=== PATIENT | female | born 1950 | race Caucasian/White ===

== ENCOUNTER 2023-12-08 15:34 | Inpatient (IN) | payer MEDICARE ==
[~2023-12-08] VITALS: Ht 170.2 cm; Wt 86.3 kg
[~2023-12-08 15:34] MED LIST: AMLO-212 PO; ASPI81TA31 PO; CLON0.1T14 PO; ENOX40DI SQ; FERR325T28 PO; LOSA50TA3 PO; MULT-24 PO; PIPE3.379 IV; VANC1PIG IV
[2023-12-08 17:34] LABS: BASOPHILS % (AUTO) 0.7 % (0.0-2.0); DIFFERENTIAL COMMENT 0; LYMPHOCYTES # (AUTO) 1.3 K/uL (0.8-4.8); LYMPHOCYTES % (AUTO) 40.9 % (20.5-51.5); MEAN CORPUSCULAR HEMOGLOBIN 29.9 uug (24.7-32.8); MEAN CORPUSCULAR HGB CONC 33 g/dL (32.3-35.6); MEAN CORPUSCULAR VOLUME 91.2 fL (75.5-95.3); MONOCYTES # (AUTO) 0.2 K/uL (0.1-1.30); NEUTROPHILS # (AUTO) 1.7 K/uL (1.8-8.9); NEUTROPHILS % (AUTO) 53.4 % (38.5-71.5); RED CELL DISTRIBUTION WIDTH 26.6 % (12.3-17.7); WHITE BLOOD COUNT (AUTO) 3.3 K/uL (3.8-11.8)
[2023-12-08 17:35] LABS: CALCIUM 8.2 mg/dL (8.5-10.1); CARBON DIOXIDE 24 mmol/L (21-32); CHLORIDE 92 mmol/L (98-107); GLUCOSE 106 mg/dL (74-106); POTASSIUM 3.5 mmol/L (3.5-5.1); SODIUM SERUM 127 mmol/L (136-145); UREA NITROGEN, BLOOD 8 mg/dL (7-18)
[2023-12-08 17:39] LABS: HEMOGLOBIN 3.3 g/dL (10.9-14.3)
[2023-12-08 17:40] LABS: PLATELET COUNT (AUTO) 12 K/uL (179-408)
[2023-12-08 17:48] LABS: ALANINE AMINOTRANSFERASE 9 U/L (14-59); ALBUMIN 2.5 g/dL (3.4-5.0); ALKALINE PHOSPHATASE 69 U/L (50-136); ASPARTATE AMINOTRANSFERASE 15 U/L (15-37); BILIRUBIN,DIRECT 0.8 mg/dL (0.0-0.2); BILIRUBIN,TOTAL 1.7 mg/dL (0.2-1.0); NT-PRO BNP 13837 pg/mL (0-125); TOTAL PROTEIN, SERUM 6.5 g/dL (6.4-8.2)
[2023-12-08] MEDS ORDERED: MAGNESIUM HYDROXIDE 30 ML LIQUID UDC PO PRN (18:30)
[2023-12-08] MEDS ORDERED: ONDANSETRON 4 MG/2 ML VIAL IV PRN (18:30)
[2023-12-08 20:09] LABS: BAND % (MANUAL) 1 % (0-10); LYMPHOCYTES % (MANUAL) 42 % (20-40); MONOCYTES % (MANUAL) 4 % (2-10); NEUTROPHILS % (MANUAL) 53 % (42-75); PLATELET ESTIMATE MARKED DECREASED
[2023-12-08 20:10] LABS: ANISOCYTOSIS 2+; HYPOCHROMASIA 1+
[2023-12-08 20:11] LABS: TEAR DROP CELLS 1+
[2023-12-09] VITALS (28 sets, daily range): BP systolic 92–164; BP diastolic 44–114; TEMP 97.3–98.1; O2SAT 91–100
[2023-12-09 05:08] LABS: LYMPHOCYTES # (AUTO) 1.6 K/uL (0.8-4.8); MEAN CORPUSCULAR HEMOGLOBIN 31.3 uug (24.7-32.8); NEUTROPHILS # (AUTO) 2.1 K/uL (1.8-8.9)
[2023-12-09 05:10] LABS: BASOPHILS % (AUTO) 0.5 % (0.0-2.0); EOSINOPHILS % (AUTO) 0.3 % (0.0-7.0); LYMPHOCYTES % (AUTO) 39.9 % (20.5-51.5); MEAN CORPUSCULAR HGB CONC 34 g/dL (32.3-35.6); MEAN CORPUSCULAR VOLUME 91.8 fL (75.5-95.3); MONOCYTES # (AUTO) 0.2 K/uL (0.1-1.30); NEUTROPHILS % (AUTO) 53.3 % (38.5-71.5); RED CELL DISTRIBUTION WIDTH 21.7 % (12.3-17.7)
[2023-12-09 05:41] LABS: CALCIUM 7.9 mg/dL (8.5-10.1); CARBON DIOXIDE 26 mmol/L (21-32); CHLORIDE 96 mmol/L (98-107); CREATININE 0.9 mg/dL (0.6-1.3); GLUCOSE 98 mg/dL (74-106); MAGNESIUM 1.4 mg/dL (1.8-2.4); PHOSPHOROUS 2.9 mg/dL (2.5-4.9); POTASSIUM 3.2 mmol/L (3.5-5.1); SODIUM SERUM 129 mmol/L (136-145); UREA NITROGEN, BLOOD 9 mg/dL (7-18)
[2023-12-09 05:53] LABS: RED BLOOD CELL COUNT(AUTO) 1.34 MIL/uL (3.63-4.92)
[2023-12-09 05:55] LABS: HEMOGLOBIN 4.2 g/dL (10.9-14.3)
[2023-12-09 05:58] LABS: HEMATOCRIT 12.3 % (31.2-41.9); PLATELET COUNT (AUTO) 31 K/uL (179-408)
[2023-12-09] MEDS ORDERED: POTASSIUM CHLORIDE 20 MEQ POWDER PACKET GT ONE (08:00)
[2023-12-09] MEDS: FUROSEMIDE 20 MG/2 ML VIAL IV ONE (08:50)
[2023-12-09] MEDS: MAGNESIUM SULFATE/D5W 100 ML IV SCH (08:51)
[2023-12-09] MEDS: POTASSIUM CHLORIDE 20 MEQ TAB.PRT.SR PO ONE (08:51)
[2023-12-09] MEDS: PANTOPRAZOLE SODIUM 40 MG VIAL IV SCH (08:52)
[2023-12-09 11:11] LABS: *BILIRUBIN,URIN NEGATIVE (NEGATIVE); *BLOOD, URINE 2+ (NEGATIVE); *CLARITY,URINE CLEAR (CLEAR); *COLOR,URINE YELLOW (YELLOW); *KETONES,URINE NEGATIVE (NEGATIVE); *PROTEIN,URINE NEGATIVE (NEGATIVE); *UROBILINOGEN,URINE 0.2 E.U./dl (NORMAL); LEUKOCYTE ESTERASE ,URINE TRACE (NEGATIVE); NITRITE, URINE NEGATIVE (NEGATIVE); PH,URINE 6.5 (5.0-8.0); UGLUCOSE NEGATIVE (NEGATIVE)
[2023-12-09 11:41] LABS: BACTERIA,URINE MODERATE /HPF (NONE SEEN); SQUAMOUS EPITHELIAL CELL,UR MANY /HPF (NONE SEEN)
[2023-12-09 12:25] LABS: HEMATOCRIT 14.2 % (31.2-41.9); HEMOGLOBIN 4.8 g/dL (10.9-14.3)
[2023-12-09] MEDS ORDERED: IBUP-1490 PO (14:18)
[2023-12-09] MEDS ORDERED: PANT40TA49 PO (14:18)
[2023-12-09] MEDS: HYDROCODONE/APAP 5-325MG TABLET PO PRN (15:42)
[2023-12-09] MEDS: PHYTONADIONE 10 MG/1 ML AMPUL IV ONE (16:57)
[2023-12-09 18:14] LABS: IRON, SERUM 240 ug/dL (50-175)
[2023-12-09 18:17] LABS: *RHEUMATOID FACTOR SCREEN NEGATIVE (NEGATIVE)
[2023-12-09 18:24] LABS: HIV-1 p24 ANTIGEN NON REACTIVE (NONREACTIVE); HIV-1/2 ANTIBODY NON REACTIVE (NONREACTIVE)
[2023-12-09 18:37] LABS: C-REACTIVE PROTEIN 3.04 mg/dL (0.00-0.30)
[2023-12-09 18:55] LABS: THYROID STIMULATING HORMONE 3.217 mIU/mL (0.358-3.740)
[2023-12-09] MEDS: diphenhydrAMINE 50 MG/1 ML VIAL IV ONE ×2 (20:00→20:28)
[2023-12-09] MEDS: ACETAMINOPHEN 325 MG TABLET PO ONE (20:28)
[2023-12-10] VITALS (31 sets, daily range): BP systolic 92–156; BP diastolic 42–93; TEMP 97.3–98.8; O2SAT 91–99
[2023-12-10] MEDS: diphenhydrAMINE 50 MG/1 ML VIAL IV PRN (02:40)
[2023-12-10 05:17] LABS: MEAN CORPUSCULAR HEMOGLOBIN 30.4 uug (24.7-32.8); WHITE BLOOD COUNT (AUTO) 2.9 K/uL (3.8-11.8)
[2023-12-10 05:18] LABS: BASOPHILS % (AUTO) 0.7 % (0.0-2.0); EOSINOPHILS % (AUTO) 1.1 % (0.0-7.0); LYMPHOCYTES # (AUTO) 1.7 K/uL (0.8-4.8); LYMPHOCYTES % (AUTO) 59.6 % (20.5-51.5); MEAN CORPUSCULAR HGB CONC 34 g/dL (32.3-35.6); MEAN CORPUSCULAR VOLUME 88.6 fL (75.5-95.3); MONOCYTES # (AUTO) 0.1 K/uL (0.1-1.30); MONOCYTES % (AUTO) 4.9 % (0.0-11.0); NEUTROPHILS % (AUTO) 33.7 % (38.5-71.5); RED CELL DISTRIBUTION WIDTH 19.6 % (12.3-17.7)
[2023-12-10 05:34] LABS: CALCIUM 8.2 mg/dL (8.5-10.1); CARBON DIOXIDE 29 mmol/L (21-32); CHLORIDE 98 mmol/L (98-107); GLUCOSE 94 mg/dL (74-106); MAGNESIUM 2.3 mg/dL (1.8-2.4); POTASSIUM 3.4 mmol/L (3.5-5.1); SODIUM SERUM 134 mmol/L (136-145); UREA NITROGEN, BLOOD 12 mg/dL (7-18)
[2023-12-10 05:42] LABS: RED BLOOD CELL COUNT(AUTO) 2.07 MIL/uL (3.63-4.92)
[2023-12-10 05:44] LABS: HEMATOCRIT 18.3 % (31.2-41.9); HEMOGLOBIN 6.3 g/dL (10.9-14.3)
[2023-12-10 05:45] LABS: DIFFERENTIAL COMMENT 1; PLATELET COUNT (AUTO) 21 K/uL (179-408)
[2023-12-10 06:43] LABS: EOSINOPHILS % (MANUAL) 2 % (0-8); LYMPHOCYTES % (MANUAL) 22 % (20-40); MONOCYTES % (MANUAL) 6 % (2-10); NEUTROPHILS % (MANUAL) 69 % (42-75)
[2023-12-10] MEDS: POTASSIUM CHLORIDE 20 MEQ TAB.PRT.SR PO ONE (10:31)
[2023-12-10] MEDS: FUROSEMIDE 20 MG/2 ML VIAL IV SCH (12:30)
[2023-12-10] MEDS: ACETAMINOPHEN 325 MG TABLET PO PRN (14:39)
[2023-12-10] MEDS: NEUTRA PHOS PACKET PO ONE ×2 (16:00→17:42)
[2023-12-10 16:12] LABS: HEMATOCRIT 23.7 % (31.2-41.9); HEMOGLOBIN 8.2 g/dL (10.9-14.3)
[2023-12-10] MEDS: HYDROCODONE/APAP 10-325 MG TABLET PO PRN (20:41)
[2023-12-10] MEDS: ZOLPIDEM 5 MG TABLET PO PRN (20:42)
[2023-12-11] VITALS (27 sets, daily range): BP systolic 67–156; BP diastolic 35–107; TEMP 97–98.6; O2SAT 91–99
[2023-12-11 05:11] LABS: CALCIUM 8.3 mg/dL (8.5-10.1); CARBON DIOXIDE 34 mmol/L (21-32); CHLORIDE 100 mmol/L (98-107); CREATININE 0.9 mg/dL (0.6-1.3); GLUCOSE 88 mg/dL (74-106); POTASSIUM 4.5 mmol/L (3.5-5.1); SODIUM SERUM 137 mmol/L (136-145); UREA NITROGEN, BLOOD 29 mg/dL (7-18)
[2023-12-11 08:10] LABS: *IMMUNOGLOBULIN G, SERUM 1577 mg/dL (586-1602); IMMUNOGLOBULIN A, SERUM 385 mg/dL (64-422); IMMUNOGLOBULIN M, SERUM 39 mg/dL (26-217)
[2023-12-11 09:16] LABS: BASOPHILS % (AUTO) 1.3 % (0.0-2.0); DIFFERENTIAL COMMENT 0; EOSINOPHILS # (AUTO) 0.1 K/uL (0.0-0.7); EOSINOPHILS % (AUTO) 2.8 % (0.0-7.0); HEMATOCRIT 23.6 % (31.2-41.9); HEMOGLOBIN 8.2 g/dL (10.9-14.3); LYMPHOCYTES # (AUTO) 1.8 K/uL (0.8-4.8); LYMPHOCYTES % (AUTO) 50.5 % (20.5-51.5); MEAN CORPUSCULAR HGB CONC 35 g/dL (32.3-35.6); MEAN CORPUSCULAR VOLUME 88.8 fL (75.5-95.3); MONOCYTES # (AUTO) 0.3 K/uL (0.1-1.30); MONOCYTES % (AUTO) 7.5 % (0.0-11.0); NEUTROPHILS # (AUTO) 1.3 K/uL (1.8-8.9); NEUTROPHILS % (AUTO) 37.9 % (38.5-71.5); RED BLOOD CELL COUNT(AUTO) 2.65 MIL/uL (3.63-4.92); RED CELL DISTRIBUTION WIDTH 18.9 % (12.3-17.7); WHITE BLOOD COUNT (AUTO) 3.5 K/uL (3.8-11.8)
[2023-12-11 09:30] LABS: PLATELET COUNT (AUTO) 16 K/uL (179-408)
[2023-12-11 11:08] LABS: ANISOCYTOSIS 2+; EOSINOPHILS % (MANUAL) 4 % (0-8); LYMPHOCYTES % (MANUAL) 56 % (20-40); MONOCYTES % (MANUAL) 8 % (2-10); NEUTROPHILS % (MANUAL) 32 % (42-75); PLATELET ESTIMATE MARKED DECREASED
[2023-12-11] MEDS: diphenhydrAMINE 50 MG/1 ML VIAL IV PRN (15:27)
[2023-12-12] VITALS (25 sets, daily range): BP systolic 90–171; BP diastolic 40–108; TEMP 97–98.9; O2SAT 89–98
[2023-12-12 01:06] LABS: FOLATE (FOLIC ACID), SERUM 6.5 ng/mL (>3.0)
[2023-12-12 05:47] LABS: EOSINOPHILS # (AUTO) 0.1 K/uL (0.0-0.7); EOSINOPHILS % (AUTO) 4.5 % (0.0-7.0); NEUTROPHILS # (AUTO) 1.3 K/uL (1.8-8.9); RED CELL DISTRIBUTION WIDTH 18.4 % (12.3-17.7); WHITE BLOOD COUNT (AUTO) 2.9 K/uL (3.8-11.8)
[2023-12-12 05:49] LABS: BASOPHILS % (AUTO) 0.9 % (0.0-2.0); HEMATOCRIT 22.7 % (31.2-41.9); HEMOGLOBIN 7.7 g/dL (10.9-14.3); LYMPHOCYTES # (AUTO) 1.2 K/uL (0.8-4.8); MEAN CORPUSCULAR HEMOGLOBIN 30.3 uug (24.7-32.8); MEAN CORPUSCULAR HGB CONC 34 g/dL (32.3-35.6); MONOCYTES # (AUTO) 0.2 K/uL (0.1-1.30); MONOCYTES % (AUTO) 5.8 % (0.0-11.0); NEUTROPHILS % (AUTO) 45.8 % (38.5-71.5); RED BLOOD CELL COUNT(AUTO) 2.55 MIL/uL (3.63-4.92)
[2023-12-12 05:57] LABS: CALCIUM 8.7 mg/dL (8.5-10.1); CARBON DIOXIDE 36 mmol/L (21-32); CHLORIDE 100 mmol/L (98-107); CREATININE 0.9 mg/dL (0.6-1.3); GLUCOSE 87 mg/dL (74-106); MAGNESIUM 1.5 mg/dL (1.8-2.4); PHOSPHOROUS 3.3 mg/dL (2.5-4.9); POTASSIUM 3.9 mmol/L (3.5-5.1); SODIUM SERUM 137 mmol/L (136-145); UREA NITROGEN, BLOOD 35 mg/dL (7-18)
[2023-12-12 05:58] LABS: DIFFERENTIAL COMMENT 1
[2023-12-12 05:59] LABS: PLATELET COUNT (AUTO) 24 K/uL (179-408)
[2023-12-12 07:38] LABS: ANISOCYTOSIS 2+; EOSINOPHILS % (MANUAL) 5 % (0-8); LYMPHOCYTES % (MANUAL) 43 % (20-40); MONOCYTES % (MANUAL) 6 % (2-10); NEUTROPHILS % (MANUAL) 46 % (42-75); PLATELET ESTIMATE MARKED DECREASED
[2023-12-12 07:45] LABS: *OCCULT BLOOD STOOL NEGATIVE (NEGATIVE)
[2023-12-12] MEDS: MAGNESIUM OXIDE 400 MG TABLET PO ONE (10:18)
[2023-12-12 10:35] LABS: AMMONIA < 10 umol/L (11-32)
[2023-12-12 10:39] LABS: ALANINE AMINOTRANSFERASE 11 U/L (14-59); ALBUMIN 2.4 g/dL (3.4-5.0); ALKALINE PHOSPHATASE 74 U/L (50-136); ASPARTATE AMINOTRANSFERASE 17 U/L (15-37); BILIRUBIN,DIRECT 0.5 mg/dL (0.0-0.2); BILIRUBIN,TOTAL 1.3 mg/dL (0.2-1.0); TOTAL PROTEIN, SERUM 6.3 g/dL (6.4-8.2)
[2023-12-12] MEDS ORDERED: ALBUTEROL SULFATE 2.5 MG/3 ML NEBU NEB PRN (17:00)
[2023-12-12] MEDS ORDERED: PIPERACILLIN SODIUM/TAZOBACTAM 3.375 G in IV DEXTROSE 5% 50 ML IV SCH (17:00)
[2023-12-12] MEDS ORDERED: PIPERACILLIN SODIUM/TAZOBACTAM 3.375 G in IV DEXTROSE 5% 100 ML IV ONE (17:00)
[2023-12-12] MEDS: MORPHINE SULFATE 2 MG/1 ML DISP.SYRIN IV PRN (20:14)
[2023-12-12] MEDS ORDERED: PIPERACILLIN SODIUM/TAZOBACTAM 3.375 G in IV DEXTROSE 5% 100 ML IV SCH (22:00)
[2023-12-13] VITALS (28 sets, daily range): BP systolic 73–162; BP diastolic 48–92; TEMP 97.5–99; O2SAT 93–98
[2023-12-13 03:10] LABS: HEPATITIS B SURFACE AB, QUAL Non Reactive (.); HEPATITIS B SURFACE AG Negative (Negative); HEPATITIS C VIRUS ANTIBODY Non Reactive (Non Reactive)
[2023-12-13 06:29] LABS: BASOPHILS % (AUTO) 1.1 % (0.0-2.0); CALCIUM 8.6 mg/dL (8.5-10.1); CARBON DIOXIDE 30 mmol/L (21-32); CHLORIDE 101 mmol/L (98-107); CREATININE 0.7 mg/dL (0.6-1.3); EOSINOPHILS % (AUTO) 2.1 % (0.0-7.0); GLUCOSE 90 mg/dL (74-106); LYMPHOCYTES # (AUTO) 1.3 K/uL (0.8-4.8); LYMPHOCYTES % (AUTO) 57.4 % (20.5-51.5); MAGNESIUM 1.5 mg/dL (1.8-2.4); MEAN CORPUSCULAR HEMOGLOBIN 30.4 uug (24.7-32.8); MEAN CORPUSCULAR HGB CONC 34 g/dL (32.3-35.6); MEAN CORPUSCULAR VOLUME 88.9 fL (75.5-95.3); MONOCYTES # (AUTO) 0.1 K/uL (0.1-1.30); MONOCYTES % (AUTO) 4.6 % (0.0-11.0); NEUTROPHILS # (AUTO) 0.8 K/uL (1.8-8.9); NEUTROPHILS % (AUTO) 34.8 % (38.5-71.5); PHOSPHOROUS 2.7 mg/dL (2.5-4.9); POTASSIUM 3.7 mmol/L (3.5-5.1); RED CELL DISTRIBUTION WIDTH 17.8 % (12.3-17.7); SODIUM SERUM 135 mmol/L (136-145); UREA NITROGEN, BLOOD 24 mg/dL (7-18); WHITE BLOOD COUNT (AUTO) 2.3 K/uL (3.8-11.8)
[2023-12-13 06:37] LABS: HEMATOCRIT 20.7 % (31.2-41.9); HEMOGLOBIN 7.1 g/dL (10.9-14.3); RED BLOOD CELL COUNT(AUTO) 2.33 MIL/uL (3.63-4.92)
[2023-12-13 06:38] LABS: PLATELET COUNT (AUTO) 16 K/uL (179-408)
[2023-12-13 09:09] LABS: FREE KAPPA LT CHAINS SERUM 47.7 mg/L (3.3-19.4); FREE LAMBDA LT CHAIN SERUM 27.2 mg/L (5.7-26.3); KAPPA/LAMBDA RATIO SERUM 1.75 (0.26-1.65)
[2023-12-13] MEDS: MAGNESIUM SULFATE/D5W 100 ML IV SCH (10:10)
[2023-12-13 12:07] LABS: A/G RATIO 0.7 (0.7-1.7); ALBUMIN 2.7 g/dL (2.9-4.4); ALPHA-1-GLOBULIN 0.4 g/dL (0.0-0.4); ALPHA-2-GLOBULIN 0.5 g/dL (0.4-1.0); BETA GLOBULIN 1.2 g/dL (0.7-1.3); GAMMA GLOBULIN 1.9 g/dL (0.4-1.8); GLOBULIN, TOTAL 3.9 g/dL (2.2-3.9); M-SPIKE Not Observed g/dL (Not Observed); PROTEIN, TOTAL 6.6 g/dL (6.0-8.5)
[2023-12-13 13:10] LABS: *ANTI-SCLERODERMA-70 AB <0.2 AI (0.0-0.9); *RNP ANTIBODIES 0.2 AI (0.0-0.9); *SJOGREN'S ANTI-SS-A 0.3 AI (0.0-0.9); *SJOGREN'S ANTI-SS-B <0.2 AI (0.0-0.9); *SMITH ANTIBODIES <0.2 AI (0.0-0.9); ANTI-DNA(DS) AB, QN 1 IU/mL (0-9); ANTI-NUCLEAR AB DIRECT Negative (Negative)
[2023-12-13 16:14] LABS: BAND % (MANUAL) 4 % (0-10); EOSINOPHILS % (MANUAL) 3 % (0-8); LYMPHOCYTES % (MANUAL) 55 % (20-40); MONOCYTES % (MANUAL) 5 % (2-10); NEUTROPHILS % (MANUAL) 33 % (42-75)
[2023-12-13 16:15] LABS: ANISOCYTOSIS 1+; PLATELET ESTIMATE MARKED DECREASED
[2023-12-13] MEDS: MORPHINE SULFATE 2 MG/1 ML DISP.SYRIN IV PRN (16:21)
[2023-12-14] VITALS (30 sets, daily range): BP systolic 94–158; BP diastolic 46–132; TEMP 97.8–99.1; O2SAT 93–98
[2023-12-14 05:11] LABS: CALCIUM 8.4 mg/dL (8.5-10.1); CARBON DIOXIDE 29 mmol/L (21-32); CHLORIDE 98 mmol/L (98-107); CREATININE 0.8 mg/dL (0.6-1.3); GLUCOSE 98 mg/dL (74-106); SODIUM SERUM 132 mmol/L (136-145); UREA NITROGEN, BLOOD 26 mg/dL (7-18)
[2023-12-14 05:43] LABS: HEMATOCRIT 20.5 % (31.2-41.9); HEMOGLOBIN 6.9 g/dL (10.9-14.3)
[2023-12-14] MEDS: PANTOPRAZOLE SODIUM 40 MG TABLET.DR PO SCH (06:22)
[2023-12-14] MEDS ORDERED: IOHEXOL 300MG/ML 100 ML INFUS..BTL ONE (11:32)
[2023-12-14] MEDS ORDERED: IV NORMAL SALINE 250 ML IV ONE (11:32)
[2023-12-14] MEDS ORDERED: SWABABLE VALVE TRANSFER SET EA MC ONE (11:32)
[2023-12-14] MEDS: GABAPENTIN 100 MG CAPSULE PO SCH (19:26)
[2023-12-14] MEDS: diphenhydrAMINE 50 MG/1 ML VIAL IV ONE (22:26)
[2023-12-14] MEDS: ACETAMINOPHEN 325 MG TABLET PO ONE (22:26)
[2023-12-15] VITALS (40 sets, daily range): BP systolic 89–173; BP diastolic 47–144; TEMP 97.5–98.6; O2SAT 94–99
[2023-12-15 05:03] LABS: BASOPHILS % (AUTO) 0.8 % (0.0-2.0); EOSINOPHILS # (AUTO) 0.1 K/uL (0.0-0.7); EOSINOPHILS % (AUTO) 3.2 % (0.0-7.0); HEMATOCRIT 24.2 % (31.2-41.9); HEMOGLOBIN 8.5 g/dL (10.9-14.3); LYMPHOCYTES # (AUTO) 1.2 K/uL (0.8-4.8); LYMPHOCYTES % (AUTO) 58.6 % (20.5-51.5); MEAN CORPUSCULAR HEMOGLOBIN 30.6 uug (24.7-32.8); MEAN CORPUSCULAR HGB CONC 35 g/dL (32.3-35.6); MEAN CORPUSCULAR VOLUME 86.8 fL (75.5-95.3); MONOCYTES # (AUTO) 0.2 K/uL (0.1-1.30); NEUTROPHILS # (AUTO) 0.5 K/uL (1.8-8.9); NEUTROPHILS % (AUTO) 26.4 % (38.5-71.5); RED BLOOD CELL COUNT(AUTO) 2.79 MIL/uL (3.63-4.92); RED CELL DISTRIBUTION WIDTH 17.1 % (12.3-17.7)
[2023-12-15 05:15] LABS: ALANINE AMINOTRANSFERASE 13 U/L (14-59); ALBUMIN 2.2 g/dL (3.4-5.0); ALKALINE PHOSPHATASE 67 U/L (50-136); ASPARTATE AMINOTRANSFERASE 11 U/L (15-37); CALCIUM 8.4 mg/dL (8.5-10.1); CARBON DIOXIDE 28 mmol/L (21-32); CHLORIDE 103 mmol/L (98-107); CREATININE 0.8 mg/dL (0.6-1.3); GLUCOSE 93 mg/dL (74-106); MAGNESIUM 1.9 mg/dL (1.8-2.4); PHOSPHOROUS 3.5 mg/dL (2.5-4.9); POTASSIUM 3.9 mmol/L (3.5-5.1); SODIUM SERUM 136 mmol/L (136-145); TOTAL PROTEIN, SERUM 5.8 g/dL (6.4-8.2); UREA NITROGEN, BLOOD 23 mg/dL (7-18)
[2023-12-15 05:19] LABS: PLATELET COUNT (AUTO) 22 K/uL (179-408)
[2023-12-15 05:54] LABS: LYMPHOCYTES % (MANUAL) 69 % (20-40); MONOCYTES % (MANUAL) 8 % (2-10); NEUTROPHILS % (MANUAL) 23 % (42-75)
[2023-12-15] MEDS ORDERED: MEROPENEM 1 G in IV NORMAL SALINE 50 ML IV ONE (07:00)
[2023-12-15] MEDS: MEROPENEM 1 G in IV NORMAL SALINE 100 ML IV SCH (09:01)
[2023-12-15] MEDS: ACETAMINOPHEN 325 MG TABLET PO ONE (22:52)
[2023-12-15] MEDS: diphenhydrAMINE 50 MG/1 ML VIAL IV ONE (22:53)
[2023-12-16] VITALS (58 sets, daily range): BP systolic 114–172; BP diastolic 47–118; TEMP 97.2–98.7; O2SAT 94–99
[2023-12-16 05:51] LABS: HEMOGLOBIN 7.9 g/dL (10.9-14.3); MEAN CORPUSCULAR HGB CONC 36 g/dL (32.3-35.6); RED CELL DISTRIBUTION WIDTH 17.1 % (12.3-17.7); WHITE BLOOD COUNT (AUTO) 2.1 K/uL (3.8-11.8)
[2023-12-16 05:58] LABS: CALCIUM 8.6 mg/dL (8.5-10.1); CARBON DIOXIDE 27 mmol/L (21-32); CHLORIDE 104 mmol/L (98-107); CREATININE 0.8 mg/dL (0.6-1.3); GLUCOSE 113 mg/dL (74-106); POTASSIUM 3.5 mmol/L (3.5-5.1); SODIUM SERUM 139 mmol/L (136-145); UREA NITROGEN, BLOOD 14 mg/dL (7-18)
[2023-12-16 06:04] LABS: BASOPHILS % (AUTO) 0.5 % (0.0-2.0); EOSINOPHILS % (AUTO) 2.2 % (0.0-7.0); LYMPHOCYTES # (AUTO) 1.1 K/uL (0.8-4.8); LYMPHOCYTES % (AUTO) 53.5 % (20.5-51.5); MEAN CORPUSCULAR HEMOGLOBIN 30.7 uug (24.7-32.8); MONOCYTES # (AUTO) 0.2 K/uL (0.1-1.30); MONOCYTES % (AUTO) 9.2 % (0.0-11.0); NEUTROPHILS # (AUTO) 0.7 K/uL (1.8-8.9); NEUTROPHILS % (AUTO) 34.6 % (38.5-71.5); RED BLOOD CELL COUNT(AUTO) 2.56 MIL/uL (3.63-4.92)
[2023-12-16 06:16] LABS: DIFFERENTIAL COMMENT 0; PLATELET COUNT (AUTO) 28 K/uL (179-408)
[2023-12-16 06:54] LABS: LYMPHOCYTES % (MANUAL) 56 % (20-40); MONOCYTES % (MANUAL) 5 % (2-10); NEUTROPHILS % (MANUAL) 39 % (42-75)
[2023-12-16] MEDS ORDERED: LIDOCAINE HCL 1% 20 ML VIAL IJ PRN (09:00)
[2023-12-17] VITALS (16 sets, daily range): BP systolic 121–173; BP diastolic 38–85; TEMP 97–98.6; O2SAT 95–99
[2023-12-17 06:28] LABS: BASOPHILS % (AUTO) 0.5 % (0.0-2.0); EOSINOPHILS # (AUTO) 0.1 K/uL (0.0-0.7); EOSINOPHILS % (AUTO) 2.9 % (0.0-7.0); HEMATOCRIT 21.8 % (31.2-41.9); HEMOGLOBIN 7.8 g/dL (10.9-14.3); LYMPHOCYTES # (AUTO) 1.4 K/uL (0.8-4.8); LYMPHOCYTES % (AUTO) 60.9 % (20.5-51.5); MEAN CORPUSCULAR HEMOGLOBIN 31.2 uug (24.7-32.8); MEAN CORPUSCULAR HGB CONC 36 g/dL (32.3-35.6); MEAN CORPUSCULAR VOLUME 87.4 fL (75.5-95.3); MONOCYTES # (AUTO) 0.2 K/uL (0.1-1.30); MONOCYTES % (AUTO) 7.8 % (0.0-11.0); NEUTROPHILS # (AUTO) 0.6 K/uL (1.8-8.9); NEUTROPHILS % (AUTO) 27.9 % (38.5-71.5); RED CELL DISTRIBUTION WIDTH 16.7 % (12.3-17.7); WHITE BLOOD COUNT (AUTO) 2.3 K/uL (3.8-11.8)
[2023-12-17 06:44] LABS: ALANINE AMINOTRANSFERASE 14 U/L (14-59); ALBUMIN 2.4 g/dL (3.4-5.0); ALKALINE PHOSPHATASE 73 U/L (50-136); ASPARTATE AMINOTRANSFERASE 12 U/L (15-37); BILIRUBIN,TOTAL 0.8 mg/dL (0.2-1.0); CALCIUM 8.7 mg/dL (8.5-10.1); CARBON DIOXIDE 26 mmol/L (21-32); CHLORIDE 105 mmol/L (98-107); CREATININE 0.7 mg/dL (0.6-1.3); GLUCOSE 87 mg/dL (74-106); MAGNESIUM 1.8 mg/dL (1.8-2.4); PHOSPHOROUS 3.5 mg/dL (2.5-4.9); POTASSIUM 3.9 mmol/L (3.5-5.1); SODIUM SERUM 139 mmol/L (136-145); TOTAL PROTEIN, SERUM 6.2 g/dL (6.4-8.2); UREA NITROGEN, BLOOD 11 mg/dL (7-18)
[2023-12-17 07:29] LABS: DIFFERENTIAL COMMENT 1; PLATELET COUNT (AUTO) 38 K/uL (179-408); RED BLOOD CELL COUNT(AUTO) 2.49 MIL/uL (3.63-4.92)
[2023-12-17] MEDS: ACETAMINOPHEN 325 MG TABLET PO ONE (07:57)
[2023-12-17] MEDS: diphenhydrAMINE 50 MG/1 ML VIAL IV ONE (07:57)
[2023-12-17] MEDS: METOPROLOL TARTRATE 25 MG TABLET PO SCH (13:43)
[2023-12-18] VITALS (9 sets, daily range): BP systolic 133–141; BP diastolic 56–66; TEMP 97.7–98.8; O2SAT 96–99
[2023-12-18] MEDS: REMEDY ESSENTIAL ZINC PASTE 113 GM TP PRN (05:26)
[2023-12-18 06:05] LABS: BASOPHILS % (AUTO) 0.6 % (0.0-2.0); EOSINOPHILS # (AUTO) 0.1 K/uL (0.0-0.7); EOSINOPHILS % (AUTO) 2.1 % (0.0-7.0); HEMATOCRIT 22.1 % (31.2-41.9); HEMOGLOBIN 7.8 g/dL (10.9-14.3); LYMPHOCYTES # (AUTO) 1.4 K/uL (0.8-4.8); LYMPHOCYTES % (AUTO) 56.7 % (20.5-51.5); MEAN CORPUSCULAR HEMOGLOBIN 30.8 uug (24.7-32.8); MEAN CORPUSCULAR HGB CONC 35 g/dL (32.3-35.6); MEAN CORPUSCULAR VOLUME 87.8 fL (75.5-95.3); MONOCYTES # (AUTO) 0.2 K/uL (0.1-1.30); MONOCYTES % (AUTO) 8.7 % (0.0-11.0); NEUTROPHILS # (AUTO) 0.8 K/uL (1.8-8.9); NEUTROPHILS % (AUTO) 31.9 % (38.5-71.5); RED BLOOD CELL COUNT(AUTO) 2.52 MIL/uL (3.63-4.92); RED CELL DISTRIBUTION WIDTH 17.2 % (12.3-17.7); WHITE BLOOD COUNT (AUTO) 2.5 K/uL (3.8-11.8)
[2023-12-18 06:14] LABS: DIFFERENTIAL COMMENT 1; PLATELET COUNT (AUTO) 38 K/uL (179-408)
[2023-12-18 07:27] LABS: CALCIUM 8.7 mg/dL (8.5-10.1); CARBON DIOXIDE 26 mmol/L (21-32); CHLORIDE 106 mmol/L (98-107); CREATININE 0.9 mg/dL (0.6-1.3); GLUCOSE 85 mg/dL (74-106); POTASSIUM 3.9 mmol/L (3.5-5.1); SODIUM SERUM 138 mmol/L (136-145); UREA NITROGEN, BLOOD 12 mg/dL (7-18)
[2023-12-18 07:46] LABS: NEUTROPHILS % (MANUAL) 30 % (42-75)
[2023-12-18 07:47] LABS: ANISOCYTOSIS 1+; BAND % (MANUAL) 4 % (0-10); EOSINOPHILS % (MANUAL) 3 % (0-8); LYMPHOCYTES % (MANUAL) 55 % (20-40); MONOCYTES % (MANUAL) 8 % (2-10); PLATELET ESTIMATE MARKED DECREASED
[2023-12-18] MEDS: diphenhydrAMINE 50 MG/1 ML VIAL IV ONE (11:52)
[2023-12-18] MEDS: ACETAMINOPHEN 325 MG TABLET PO ONE (11:53)
[2023-12-18] MEDS ORDERED: HYDROCODONE/APAP 10-325 MG TABLET PO PRN (13:00)
[2023-12-18] MEDS: ACIDOPHILUS/BULGARICUS CHEW TAB PO SCH (13:35)
[2023-12-18] MEDS ORDERED: MORPHINE SULFATE 2 MG/1 ML DISP.SYRIN IV ONE (14:45)
[2023-12-18] MEDS ORDERED: LORAZEPAM 1 MG TABLET PO ONE (14:45)
[2023-12-18] MEDS: LORAZEPAM 1 MG TABLET PO PRN (14:47)
[2023-12-18] MEDS: MORPHINE SULFATE 2 MG/1 ML DISP.SYRIN IV STA (15:02)
[2023-12-18] MEDS: LIDOCAINE HCL 1% 20 ML VIAL IJ PRN (16:17)
[2023-12-18 16:35] LABS: BASOPHILS % (AUTO) 0.4 % (0.0-2.0); HEMATOCRIT 23.4 % (31.2-41.9); LYMPHOCYTES # (AUTO) 1.4 K/uL (0.8-4.8); LYMPHOCYTES % (AUTO) 54.8 % (20.5-51.5); MEAN CORPUSCULAR HEMOGLOBIN 30.4 uug (24.7-32.8); MEAN CORPUSCULAR HGB CONC 34 g/dL (32.3-35.6); MEAN CORPUSCULAR VOLUME 88.5 fL (75.5-95.3); MONOCYTES # (AUTO) 0.2 K/uL (0.1-1.30); MONOCYTES % (AUTO) 7.1 % (0.0-11.0); NEUTROPHILS # (AUTO) 0.9 K/uL (1.8-8.9); NEUTROPHILS % (AUTO) 35.7 % (38.5-71.5); RED BLOOD CELL COUNT(AUTO) 2.64 MIL/uL (3.63-4.92); RED CELL DISTRIBUTION WIDTH 16.5 % (12.3-17.7); WHITE BLOOD COUNT (AUTO) 2.5 K/uL (3.8-11.8)
[2023-12-18 16:37] LABS: DIFFERENTIAL COMMENT 1
[2023-12-18 16:40] LABS: PLATELET COUNT (AUTO) 48 K/uL (179-408)
[2023-12-18] MEDS ORDERED: MORPHINE SULFATE 2 MG/1 ML DISP.SYRIN IV PRN (17:00)
[2023-12-18 20:01] LABS: EOSINOPHILS % (MANUAL) 1 % (0-8); LYMPHOCYTES % (MANUAL) 64 % (20-40); MONOCYTES % (MANUAL) 6 % (2-10); NEUTROPHILS % (MANUAL) 29 % (42-75); PLATELET ESTIMATE DECREASED
[2023-12-19] MEDS ORDERED: MEROPENEM 1 G VIAL IV ONE (00:08)
[2023-12-19 06:47] LABS: BASOPHILS % (AUTO) 0.3 % (0.0-2.0); EOSINOPHILS % (AUTO) 2.1 % (0.0-7.0); HEMATOCRIT 21.5 % (31.2-41.9); HEMOGLOBIN 7.5 g/dL (10.9-14.3); LYMPHOCYTES # (AUTO) 1.2 K/uL (0.8-4.8); LYMPHOCYTES % (AUTO) 63.8 % (20.5-51.5); MEAN CORPUSCULAR HEMOGLOBIN 30.8 uug (24.7-32.8); MEAN CORPUSCULAR HGB CONC 35 g/dL (32.3-35.6); MEAN CORPUSCULAR VOLUME 88.8 fL (75.5-95.3); MONOCYTES # (AUTO) 0.1 K/uL (0.1-1.30); NEUTROPHILS # (AUTO) 0.5 K/uL (1.8-8.9); NEUTROPHILS % (AUTO) 26.8 % (38.5-71.5); RED CELL DISTRIBUTION WIDTH 16.5 % (12.3-17.7)
[2023-12-19 07:06] LABS: CALCIUM 8.7 mg/dL (8.5-10.1); CARBON DIOXIDE 28 mmol/L (21-32); CHLORIDE 104 mmol/L (98-107); CREATININE 0.8 mg/dL (0.6-1.3); GLUCOSE 90 mg/dL (74-106); POTASSIUM 3.9 mmol/L (3.5-5.1); SODIUM SERUM 139 mmol/L (136-145); UREA NITROGEN, BLOOD 12 mg/dL (7-18)
[2023-12-19 07:08] LABS: DIFFERENTIAL COMMENT 1; RED BLOOD CELL COUNT(AUTO) 2.42 MIL/uL (3.63-4.92); WHITE BLOOD COUNT (AUTO) 1.8 K/uL (3.8-11.8)
[2023-12-19 08:05] LABS: MAGNESIUM 1.7 mg/dL (1.8-2.4)
[2023-12-19 08:54] LABS: ANISOCYTOSIS 1+; EOSINOPHILS % (MANUAL) 2 % (0-8); LYMPHOCYTES % (MANUAL) 64 % (20-40); MONOCYTES % (MANUAL) 7 % (2-10); NEUTROPHILS % (MANUAL) 27 % (42-75); PLATELET ESTIMATE MARKED DECREASED
[2023-12-19 08:55] LABS: PLATELET COUNT (AUTO) 32 K/uL (179-408)
[2023-12-19 09:08] LABS: CANCER AG, 125 55.4 U/mL (0.0-38.1); CANCER ANTIGEN 15-3 19.7 U/mL (0.0-25.0); CARCINOEMBRYONIC AG (CEA) 1.8 ng/mL (0.0-4.7)
[2023-12-19] MEDS: MAGNESIUM OXIDE 400 MG TABLET PO ONE (11:44)
[2023-12-19 12:00] VITALS: BP 140/65; TEMP 98.4; O2SAT 98
[2023-12-19] MEDS: ACETAMINOPHEN 325 MG TABLET PO ONE (15:51)
[2023-12-19] MEDS: diphenhydrAMINE 50 MG/1 ML VIAL IV ONE (15:51)
[2023-12-19 16:00] VITALS: BP 141/60; TEMP 98; O2SAT 98
[2023-12-20 07:05] LABS: CALCIUM 9.2 mg/dL (8.5-10.1); CARBON DIOXIDE 28 mmol/L (21-32); CHLORIDE 97 mmol/L (98-107); CREATININE 0.7 mg/dL (0.6-1.3); GLUCOSE 86 mg/dL (74-106); POTASSIUM 4.1 mmol/L (3.5-5.1); SODIUM SERUM 131 mmol/L (136-145); UREA NITROGEN, BLOOD 16 mg/dL (7-18)
[2023-12-20 07:57] LABS: BASOPHILS % (AUTO) 0.3 % (0.0-2.0); DIFFERENTIAL COMMENT 0; EOSINOPHILS # (AUTO) 0.1 K/uL (0.0-0.7); EOSINOPHILS % (AUTO) 2.5 % (0.0-7.0); HEMATOCRIT 21.6 % (31.2-41.9); HEMOGLOBIN 7.6 g/dL (10.9-14.3); LYMPHOCYTES # (AUTO) 1.3 K/uL (0.8-4.8); MEAN CORPUSCULAR HEMOGLOBIN 31.2 uug (24.7-32.8); MEAN CORPUSCULAR HGB CONC 35 g/dL (32.3-35.6); MEAN CORPUSCULAR VOLUME 88.4 fL (75.5-95.3); MONOCYTES # (AUTO) 0.1 K/uL (0.1-1.30); MONOCYTES % (AUTO) 6.5 % (0.0-11.0); NEUTROPHILS # (AUTO) 0.6 K/uL (1.8-8.9); NEUTROPHILS % (AUTO) 29.7 % (38.5-71.5); RED CELL DISTRIBUTION WIDTH 16.7 % (12.3-17.7); WHITE BLOOD COUNT (AUTO) 2.1 K/uL (3.8-11.8)
[2023-12-20 08:08] VITALS: BP 161/69; TEMP 98.8; O2SAT 96
[2023-12-20 08:24] LABS: RED BLOOD CELL COUNT(AUTO) 2.44 MIL/uL (3.63-4.92)
[2023-12-20] MEDS: ENSURE ENLIVE (VAN) 240 ML LIQUID PO SCH (08:24)
[2023-12-20 08:25] LABS: PLATELET COUNT (AUTO) 28 K/uL (179-408)
[2023-12-20 09:44] LABS: LYMPHOCYTES % (MANUAL) 0 % (20-40); NEUTROPHILS % (MANUAL) 0 % (42-75)
[2023-12-20 12:48] VITALS: BP 121/52; TEMP 96.2; O2SAT 98
[2023-12-20 16:07] VITALS: BP 125/50; TEMP 98.5; O2SAT 95
[2023-12-20 19:36] VITALS: BP 136/76; TEMP 99.7; O2SAT 97
[2023-12-21 05:44] VITALS: BP 140/69; TEMP 98.4; O2SAT 97
[2023-12-21 09:18] LABS: BASOPHILS % (AUTO) 0.4 % (0.0-2.0); EOSINOPHILS # (AUTO) 0.1 K/uL (0.0-0.7); EOSINOPHILS % (AUTO) 2.8 % (0.0-7.0); HEMATOCRIT 24.7 % (31.2-41.9); HEMOGLOBIN 8.6 g/dL (10.9-14.3); LYMPHOCYTES # (AUTO) 1.4 K/uL (0.8-4.8); LYMPHOCYTES % (AUTO) 61.9 % (20.5-51.5); MEAN CORPUSCULAR HEMOGLOBIN 31.1 uug (24.7-32.8); MEAN CORPUSCULAR HGB CONC 35 g/dL (32.3-35.6); MEAN CORPUSCULAR VOLUME 89.6 fL (75.5-95.3); MONOCYTES # (AUTO) 0.1 K/uL (0.1-1.30); MONOCYTES % (AUTO) 5.2 % (0.0-11.0); NEUTROPHILS # (AUTO) 0.7 K/uL (1.8-8.9); NEUTROPHILS % (AUTO) 29.7 % (38.5-71.5); RED BLOOD CELL COUNT(AUTO) 2.76 MIL/uL (3.63-4.92); WHITE BLOOD COUNT (AUTO) 2.2 K/uL (3.8-11.8)
[2023-12-21 09:22] LABS: DIFFERENTIAL COMMENT 1; PLATELET COUNT (AUTO) 19 K/uL (179-408)
[2023-12-21 09:48] LABS: CALCIUM 9.2 mg/dL (8.5-10.1); CARBON DIOXIDE 26 mmol/L (21-32); CHLORIDE 100 mmol/L (98-107); CREATININE 0.7 mg/dL (0.6-1.3); GLUCOSE 94 mg/dL (74-106); POTASSIUM 3.8 mmol/L (3.5-5.1); SODIUM SERUM 136 mmol/L (136-145); UREA NITROGEN, BLOOD 21 mg/dL (7-18)
[2023-12-21 10:17] LABS: EOSINOPHILS % (MANUAL) 3 % (0-8); LYMPHOCYTES % (MANUAL) 62 % (20-40); MONOCYTES % (MANUAL) 5 % (2-10); NEUTROPHILS % (MANUAL) 30 % (42-75); PLATELET ESTIMATE MARKED DECREASED
[2023-12-21 11:51] VITALS: BP 120/56; TEMP 98.1; O2SAT 98
[2023-12-21] MEDS ORDERED: MAGN400O6 PO (17:27)
[2023-12-21] MEDS ORDERED: ZOLP5TAB2 PO (17:27)
[2023-12-21] MEDS ORDERED: ACID1TAB12 PO (17:27)
[2023-12-21] MEDS ORDERED: ACET-2154 PO (17:27)
[2023-12-21] MEDS ORDERED: METO25TA6 PO (17:27)
[2023-12-21] MEDS ORDERED: HYDR-3980 PO (17:27)
[2023-12-21] MEDS ORDERED: PETR113P TP (17:27)
[2023-12-21] MEDS ORDERED: GABA100C PO (17:27)
[2023-12-21] MEDS ORDERED: LACT-239 PO (17:29)
[2023-12-21] MEDS ORDERED: MORP2VIA IV (17:39)
== END 2023-12-21 15:27 | DRG 808 ==
LOC: ER 15:35 → CCU 22:50 → TELE3 12-17 12:30 → MEDSURG3 12-17 13:37
PROVIDERS: ADMIT Student in an Organized Health Care Education/Training Program; ATTEND Student in an Organized Health Care Education/Training Program
PROC: 30233N1 Transfusion of Nonautologous Red Blood Cells into Peripheral Vein, Percutaneous Approach (ICD-10-PCS; 2023-12-08)
PROC: 05HB33Z Insertion of Infusion Device into Right Basilic Vein, Percutaneous Approach (ICD-10-PCS; 2023-12-08)
PROC: 30233R1 Transfusion of Nonautologous Platelets into Peripheral Vein, Percutaneous Approach (ICD-10-PCS; 2023-12-09)
PROC: 30233R1 Transfusion of Nonautologous Platelets into Peripheral Vein, Percutaneous Approach (ICD-10-PCS; 2023-12-09)
PROC: 30233K1 Transfusion of Nonautologous Frozen Plasma into Peripheral Vein, Percutaneous Approach (ICD-10-PCS; principal; 2023-12-10)
PROC: 07DH3ZX Extraction of Right Inguinal Lymphatic, Percutaneous Approach, Diagnostic (ICD-10-PCS; 2023-12-16)
PROC: 07DR3ZX Extraction of Iliac Bone Marrow, Percutaneous Approach, Diagnostic (ICD-10-PCS; 2023-12-18)
PROC: 079T3ZX Drainage of Bone Marrow, Percutaneous Approach, Diagnostic (ICD-10-PCS; 2023-12-18)
DX: D61.818 Other pancytopenia (principal); A41.9 Sepsis, unspecified organism; G92.8 Other toxic encephalopathy; I21.A1 Myocardial infarction type 2; I50.31 Acute diastolic (congestive) heart failure; J69.0 Pneumonitis due to inhalation of food and vomit; E43 Unspecified severe protein-calorie malnutrition; C96.9 Malignant neoplasm of lymphoid, hematopoietic and related tissue, unspecified; E44.0 Moderate protein-calorie malnutrition; N39.0 Urinary tract infection, site not specified; D68.59 Other primary thrombophilia; E87.1 Hypo-osmolality and hyponatremia; L97.818 Non-pressure chronic ulcer of other part of right lower leg with other specified severity; L97.828 Non-pressure chronic ulcer of other part of left lower leg with other specified severity; N17.9 Acute kidney failure, unspecified; R17 Unspecified jaundice; L08.9 Local infection of the skin and subcutaneous tissue, unspecified; I11.0 Hypertensive heart disease with heart failure; E88.09 Other disorders of plasma-protein metabolism, not elsewhere classified; Z74.09 Other reduced mobility; E83.42 Hypomagnesemia; E83.39 Other disorders of phosphorus metabolism; E87.6 Hypokalemia; I83.018 Varicose veins of right lower extremity with ulcer other part of lower leg; I83.028 Varicose veins of left lower extremity with ulcer other part of lower leg; K21.9 Gastro-esophageal reflux disease without esophagitis; E03.9 Hypothyroidism, unspecified; D72.820 Lymphocytosis (symptomatic); R97.1 Elevated cancer antigen 125 [CA 125]; Z79.899 Other long term (current) drug therapy; N35.92 Unspecified urethral stricture, female
CPT/HCPCS: 36415; 70030-TC; 71045; 71270; 76700; 82378; 82746; 82784; 83010; 83550; 83605; 83615; 83735; 84100; 84155; 84165; 84443; 84484; 85018; 85025; 85610; 85730; 86038; 86140; 86300; 86334; 86430; 86706; 86803; 86850; 86880; 86900; 86901; 86920; 87040; 87340; 87806; 88185; 93307; A4606; A4663; A6213; G0378; J1200; J1940; J2185; J2270; J2470; J2543; J3430; J3475; J3490; J7040; P9016; P9035; P9059; Q9967

== ENCOUNTER 2023-12-21 15:50 | Inpatient (IN) | payer MEDICARE ==
[~2023-12-21] VITALS: Ht 170.2 cm; Wt 88.5 kg
[~2023-12-21 15:50] MED LIST changes: -AMLO-212 PO; -ASPI81TA31 PO; -CLON0.1T14 PO; -ENOX40DI SQ; -FERR325T28 PO; +IBUP-1490 PO; -LOSA50TA3 PO; -MULT-24 PO; +PANT40TA49 PO; -PIPE3.379 IV; -VANC1PIG IV
[2023-12-21 16:28] VITALS: BP 108/66; TEMP 98.2; O2SAT 100
[2023-12-21] MEDS ORDERED: GABA100C PO (17:27)
[2023-12-21] MEDS ORDERED: ZOLP5TAB2 PO (17:27)
[2023-12-21] MEDS ORDERED: MAGN400O6 PO (17:27)
[2023-12-21] MEDS ORDERED: HYDR-3980 PO (17:27)
[2023-12-21] MEDS ORDERED: ACID1TAB12 PO (17:27)
[2023-12-21] MEDS ORDERED: PETR113P TP (17:27)
[2023-12-21] MEDS ORDERED: METO25TA6 PO (17:27)
[2023-12-21] MEDS ORDERED: ACET-2154 PO (17:27)
[2023-12-21] MEDS ORDERED: LACT-239 PO (17:29)
[2023-12-21] MEDS ORDERED: MORP2VIA IV (17:39)
[2023-12-21] MEDS ORDERED: ACETAMINOPHEN 325 MG TABLET-SA PATIENTS-PAIN ONLY PO PRN (18:15)
[2023-12-21] MEDS: ACIDOPHILUS/BULGARICUS CHEW TAB PO SCH (20:25)
[2023-12-21] MEDS: GABAPENTIN 100 MG CAPSULE PO SCH (20:25)
[2023-12-21] MEDS: METOPROLOL TARTRATE 25 MG TABLET PO SCH (20:26)
[2023-12-21 20:44] VITALS: BP 108/48; TEMP 98; O2SAT 96
[2023-12-21] MEDS ORDERED: Medication Not On Formulary EA (Acidophilus/Bulgaricus (Floranex Tablet) 1 TAB) PO SCH (21:00)
[2023-12-21] MEDS: ZOLPIDEM 5 MG TABLET PO PRN (21:02)
[2023-12-21] MEDS: ACETAMINOPHEN 325 MG TABLET PO PRN (22:51)
[2023-12-22 06:00] VITALS: BP 142/67; TEMP 97.7; O2SAT 99
[2023-12-22] MEDS: PANTOPRAZOLE SODIUM 40 MG TABLET.DR PO SCH (06:18)
[2023-12-22] MEDS: ENSURE ENLIVE (VAN) 240 ML LIQUID PO SCH (08:38)
[2023-12-22] MEDS ORDERED: COMPLEAT MODIFIED FORMULA 1000 ML LIQUID PO SCH (09:00)
[2023-12-22 14:46] LABS: BASOPHILS % (AUTO) 0.4 % (0.0-2.0); EOSINOPHILS # (AUTO) 0.1 K/uL (0.0-0.7); EOSINOPHILS % (AUTO) 2.1 % (0.0-7.0); HEMATOCRIT 22.1 % (31.2-41.9); HEMOGLOBIN 7.5 g/dL (10.9-14.3); LYMPHOCYTES # (AUTO) 1.4 K/uL (0.8-4.8); LYMPHOCYTES % (AUTO) 57.9 % (20.5-51.5); MEAN CORPUSCULAR HEMOGLOBIN 30.6 uug (24.7-32.8); MEAN CORPUSCULAR HGB CONC 34 g/dL (32.3-35.6); MEAN CORPUSCULAR VOLUME 89.6 fL (75.5-95.3); MONOCYTES # (AUTO) 0.2 K/uL (0.1-1.30); MONOCYTES % (AUTO) 7.1 % (0.0-11.0); NEUTROPHILS # (AUTO) 0.8 K/uL (1.8-8.9); NEUTROPHILS % (AUTO) 32.5 % (38.5-71.5); RED CELL DISTRIBUTION WIDTH 17.8 % (12.3-17.7); WHITE BLOOD COUNT (AUTO) 2.5 K/uL (3.8-11.8)
[2023-12-22 15:24] LABS: DIFFERENTIAL COMMENT 1; RED BLOOD CELL COUNT(AUTO) 2.46 MIL/uL (3.63-4.92)
[2023-12-22 15:28] LABS: PLATELET COUNT (AUTO) 15 K/uL (179-408)
[2023-12-22 16:00] VITALS: BP 128/61; TEMP 98.1; O2SAT 100
[2023-12-22] MEDS: ACETAMINOPHEN 325 MG TABLET PO ONE (19:30)
[2023-12-22 20:00] VITALS: BP 137/55; TEMP 98; O2SAT 100
[2023-12-22 20:03] LABS: ANISOCYTOSIS 1+; BAND % (MANUAL) 1 % (0-10); EOSINOPHILS % (MANUAL) 1 % (0-8); LYMPHOCYTES % (MANUAL) 66 % (20-40); MONOCYTES % (MANUAL) 5 % (2-10); NEUTROPHILS % (MANUAL) 27 % (42-75); PLATELET ESTIMATE MARKED DECREASED
[2023-12-22 20:04] LABS: TEAR DROP CELLS OCC
[2023-12-23] VITALS (8 sets, daily range): BP systolic 99–131; BP diastolic 40–62; TEMP 97.7–98.4; O2SAT 98–99
[2023-12-23] MEDS: diphenhydrAMINE 25 MG CAP PO PRN (04:27)
[2023-12-23] MEDS: ACETAMINOPHEN 500 MG TABLET PO ONE (04:42)
[2023-12-23] MEDS ORDERED: REMEDY ESSENTIAL ZINC PASTE 113 GM TOP PRN (10:30)
[2023-12-23 12:34] LABS: BASOPHILS % (AUTO) 0.1 % (0.0-2.0); EOSINOPHILS # (AUTO) 0.1 K/uL (0.0-0.7); EOSINOPHILS % (AUTO) 5.5 % (0.0-7.0); HEMATOCRIT 22.3 % (31.2-41.9); HEMOGLOBIN 7.7 g/dL (10.9-14.3); LYMPHOCYTES # (AUTO) 0.4 K/uL (0.8-4.8); LYMPHOCYTES % (AUTO) 22.2 % (20.5-51.5); MEAN CORPUSCULAR HEMOGLOBIN 31.1 uug (24.7-32.8); MEAN CORPUSCULAR HGB CONC 35 g/dL (32.3-35.6); MEAN CORPUSCULAR VOLUME 89.7 fL (75.5-95.3); MONOCYTES % (AUTO) 1.7 % (0.0-11.0); NEUTROPHILS # (AUTO) 1.4 K/uL (1.8-8.9); NEUTROPHILS % (AUTO) 70.5 % (38.5-71.5); RED CELL DISTRIBUTION WIDTH 17.3 % (12.3-17.7)
[2023-12-23 13:00] LABS: DIFFERENTIAL COMMENT 1; PLATELET COUNT (AUTO) 22 K/uL (179-408); RED BLOOD CELL COUNT(AUTO) 2.48 MIL/uL (3.63-4.92)
[2023-12-23 13:08] LABS: LYMPHOCYTES % (MANUAL) 0 % (20-40); NEUTROPHILS % (MANUAL) 0 % (42-75)
[2023-12-23] MEDS: REMEDY ESSENTIAL ZINC PASTE 113 GM TOP SCH (21:36)
[2023-12-24 06:30] VITALS: BP 120/47; TEMP 97.9; O2SAT 99
[2023-12-24 08:40] LABS: BASOPHILS % (AUTO) 0.5 % (0.0-2.0); DIFFERENTIAL COMMENT 0; EOSINOPHILS # (AUTO) 0.1 K/uL (0.0-0.7); EOSINOPHILS % (AUTO) 2.7 % (0.0-7.0); HEMATOCRIT 20.7 % (31.2-41.9); HEMOGLOBIN 7.3 g/dL (10.9-14.3); LYMPHOCYTES # (AUTO) 1.3 K/uL (0.8-4.8); LYMPHOCYTES % (AUTO) 56.7 % (20.5-51.5); MEAN CORPUSCULAR HEMOGLOBIN 31.6 uug (24.7-32.8); MEAN CORPUSCULAR HGB CONC 35 g/dL (32.3-35.6); MEAN CORPUSCULAR VOLUME 89.9 fL (75.5-95.3); MONOCYTES # (AUTO) 0.2 K/uL (0.1-1.30); MONOCYTES % (AUTO) 7.4 % (0.0-11.0); NEUTROPHILS # (AUTO) 0.8 K/uL (1.8-8.9); NEUTROPHILS % (AUTO) 32.7 % (38.5-71.5); RED CELL DISTRIBUTION WIDTH 16.8 % (12.3-17.7); WHITE BLOOD COUNT (AUTO) 2.3 K/uL (3.8-11.8)
[2023-12-24 08:42] LABS: PLATELET COUNT (AUTO) 20 K/uL (179-408)
[2023-12-24 11:50] LABS: EOSINOPHILS % (MANUAL) 3 % (0-8); LYMPHOCYTES % (MANUAL) 57 % (20-40); MONOCYTES % (MANUAL) 7 % (2-10); NEUTROPHILS % (MANUAL) 33 % (42-75)
[2023-12-24 11:51] LABS: PLATELET ESTIMATE MARKED DECREASED
[2023-12-24 14:37] LABS: HEMATOCRIT 20.4 % (31.2-41.9)
[2023-12-24 16:11] VITALS: BP 132/46; TEMP 97.7; O2SAT 100
[2023-12-24 20:01] VITALS: BP 129/48; TEMP 98.2; O2SAT 98
[2023-12-24] MEDS: MAGNESIUM HYDROXIDE 30 ML LIQUID UDC PO PRN (22:28)
[2023-12-25] VITALS (8 sets, daily range): BP systolic 109–131; BP diastolic 36–51; TEMP 96.9–98.8; O2SAT 96–100
[2023-12-25 07:00] LABS: BASOPHILS % (AUTO) 0.3 % (0.0-2.0); EOSINOPHILS # (AUTO) 0.1 K/uL (0.0-0.7); EOSINOPHILS % (AUTO) 2.4 % (0.0-7.0); HEMATOCRIT 22.4 % (31.2-41.9); LYMPHOCYTES # (AUTO) 1.5 K/uL (0.8-4.8); MEAN CORPUSCULAR HEMOGLOBIN 31.6 uug (24.7-32.8); MEAN CORPUSCULAR HGB CONC 36 g/dL (32.3-35.6); MONOCYTES # (AUTO) 0.2 K/uL (0.1-1.30); MONOCYTES % (AUTO) 7.1 % (0.0-11.0); NEUTROPHILS # (AUTO) 0.7 K/uL (1.8-8.9); NEUTROPHILS % (AUTO) 29.2 % (38.5-71.5); RED BLOOD CELL COUNT(AUTO) 2.52 MIL/uL (3.63-4.92); RED CELL DISTRIBUTION WIDTH 16.4 % (12.3-17.7); WHITE BLOOD COUNT (AUTO) 2.4 K/uL (3.8-11.8)
[2023-12-25 07:01] LABS: HEMATOCRIT 22.5 % (31.2-41.9); HEMOGLOBIN 8.1 g/dL (10.9-14.3)
[2023-12-25 07:22] LABS: CALCIUM 9.4 mg/dL (8.5-10.1); CARBON DIOXIDE 28 mmol/L (21-32); CHLORIDE 97 mmol/L (98-107); CREATININE 0.7 mg/dL (0.6-1.3); GLUCOSE 92 mg/dL (74-106); PHOSPHOROUS 5.5 mg/dL (2.5-4.9); POTASSIUM 3.9 mmol/L (3.5-5.1); SODIUM SERUM 128 mmol/L (136-145); UREA NITROGEN, BLOOD 38 mg/dL (7-18)
[2023-12-25 07:27] LABS: DIFFERENTIAL COMMENT 1; PLATELET COUNT (AUTO) 19 K/uL (179-408)
[2023-12-25 08:51] LABS: EOSINOPHILS % (MANUAL) 3 % (0-8); LYMPHOCYTES % (MANUAL) 61 % (20-40); MONOCYTES % (MANUAL) 7 % (2-10); NEUTROPHILS % (MANUAL) 29 % (42-75)
[2023-12-25 08:52] LABS: ANISOCYTOSIS 1+; PLATELET ESTIMATE MARKED DECREASED
[2023-12-26 06:19] VITALS: BP 124/54; TEMP 97.9; O2SAT 98
[2023-12-26 07:19] LABS: BASOPHILS % (AUTO) 0.3 % (0.0-2.0); DIFFERENTIAL COMMENT 0; EOSINOPHILS # (AUTO) 0.1 K/uL (0.0-0.7); EOSINOPHILS % (AUTO) 2.3 % (0.0-7.0); HEMATOCRIT 22.4 % (31.2-41.9); LYMPHOCYTES # (AUTO) 1.2 K/uL (0.8-4.8); LYMPHOCYTES % (AUTO) 52.5 % (20.5-51.5); MEAN CORPUSCULAR HEMOGLOBIN 31.8 uug (24.7-32.8); MEAN CORPUSCULAR HGB CONC 36 g/dL (32.3-35.6); MEAN CORPUSCULAR VOLUME 89.5 fL (75.5-95.3); MONOCYTES # (AUTO) 0.2 K/uL (0.1-1.30); MONOCYTES % (AUTO) 8.3 % (0.0-11.0); NEUTROPHILS # (AUTO) 0.8 K/uL (1.8-8.9); NEUTROPHILS % (AUTO) 36.6 % (38.5-71.5); RED BLOOD CELL COUNT(AUTO) 2.51 MIL/uL (3.63-4.92); RED CELL DISTRIBUTION WIDTH 16.4 % (12.3-17.7); WHITE BLOOD COUNT (AUTO) 2.2 K/uL (3.8-11.8)
[2023-12-26 07:31] LABS: PLATELET COUNT (AUTO) 17 K/uL (179-408)
[2023-12-26 07:36] LABS: CALCIUM 9.7 mg/dL (8.5-10.1); CARBON DIOXIDE 28 mmol/L (21-32); CHLORIDE 99 mmol/L (98-107); CREATININE 0.7 mg/dL (0.6-1.3); GLUCOSE 94 mg/dL (74-106); MAGNESIUM 2.1 mg/dL (1.8-2.4); PHOSPHOROUS 5.5 mg/dL (2.5-4.9); SODIUM SERUM 133 mmol/L (136-145); UREA NITROGEN, BLOOD 30 mg/dL (7-18)
[2023-12-26 09:58] LABS: ANISOCYTOSIS 1+; EOSINOPHILS % (MANUAL) 2 % (0-8); LYMPHOCYTES % (MANUAL) 53 % (20-40); MONOCYTES % (MANUAL) 8 % (2-10); NEUTROPHILS % (MANUAL) 37 % (42-75); PLATELET ESTIMATE MARKED DECREASED
[2023-12-26 16:29] VITALS: BP 126/54; TEMP 98.5; O2SAT 100
[2023-12-26 19:58] VITALS: BP 122/52; TEMP 98.5; O2SAT 96
[2023-12-27] VITALS (11 sets, daily range): BP systolic 113–128; BP diastolic 40–68; TEMP 97.6–98.2; O2SAT 94–100
[2023-12-27 12:15] LABS: BASOPHILS % (AUTO) 0.4 % (0.0-2.0); EOSINOPHILS # (AUTO) 0.1 K/uL (0.0-0.7); EOSINOPHILS % (AUTO) 3.5 % (0.0-7.0); HEMATOCRIT 22.2 % (31.2-41.9); HEMOGLOBIN 7.9 g/dL (10.9-14.3); LYMPHOCYTES # (AUTO) 0.9 K/uL (0.8-4.8); LYMPHOCYTES % (AUTO) 56.1 % (20.5-51.5); MEAN CORPUSCULAR HEMOGLOBIN 32.2 uug (24.7-32.8); MEAN CORPUSCULAR HGB CONC 36 g/dL (32.3-35.6); MEAN CORPUSCULAR VOLUME 90.6 fL (75.5-95.3); MONOCYTES # (AUTO) 0.2 K/uL (0.1-1.30); MONOCYTES % (AUTO) 10.8 % (0.0-11.0); NEUTROPHILS # (AUTO) 0.5 K/uL (1.8-8.9); NEUTROPHILS % (AUTO) 29.2 % (38.5-71.5)
[2023-12-27 13:07] LABS: DIFFERENTIAL COMMENT 1; PLATELET COUNT (AUTO) 17 K/uL (179-408); RED BLOOD CELL COUNT(AUTO) 2.45 MIL/uL (3.63-4.92); WHITE BLOOD COUNT (AUTO) 1.6 K/uL (3.8-11.8)
[2023-12-27] MEDS: ACETAMINOPHEN 325 MG TABLET PO ONE (13:23)
[2023-12-27] MEDS: diphenhydrAMINE 50 MG/1 ML VIAL IV ONE (13:24)
[2023-12-27] MEDS: diphenhydrAMINE 50 MG/1 ML VIAL ONE (13:40)
[2023-12-28 06:00] VITALS: BP 137/62; TEMP 97.7; O2SAT 98
[2023-12-28 08:26] LABS: BASOPHILS % (AUTO) 0.3 % (0.0-2.0); EOSINOPHILS # (AUTO) 0.1 K/uL (0.0-0.7); EOSINOPHILS % (AUTO) 4.6 % (0.0-7.0); HEMATOCRIT 21.1 % (31.2-41.9); HEMOGLOBIN 7.6 g/dL (10.9-14.3); LYMPHOCYTES # (AUTO) 1.1 K/uL (0.8-4.8); LYMPHOCYTES % (AUTO) 60.3 % (20.5-51.5); MEAN CORPUSCULAR HEMOGLOBIN 32.6 uug (24.7-32.8); MEAN CORPUSCULAR HGB CONC 36 g/dL (32.3-35.6); MEAN CORPUSCULAR VOLUME 90.8 fL (75.5-95.3); MONOCYTES # (AUTO) 0.2 K/uL (0.1-1.30); MONOCYTES % (AUTO) 9.5 % (0.0-11.0); NEUTROPHILS # (AUTO) 0.5 K/uL (1.8-8.9); NEUTROPHILS % (AUTO) 25.3 % (38.5-71.5); RED CELL DISTRIBUTION WIDTH 17.3 % (12.3-17.7)
[2023-12-28 08:37] LABS: CALCIUM 9.3 mg/dL (8.5-10.1); CARBON DIOXIDE 30 mmol/L (21-32); CHLORIDE 102 mmol/L (98-107); CREATININE 0.8 mg/dL (0.6-1.3); GLUCOSE 92 mg/dL (74-106); POTASSIUM 3.9 mmol/L (3.5-5.1); SODIUM SERUM 139 mmol/L (136-145); UREA NITROGEN, BLOOD 31 mg/dL (7-18)
[2023-12-28 08:52] LABS: DIFFERENTIAL COMMENT 1; PLATELET COUNT (AUTO) 22 K/uL (179-408); RED BLOOD CELL COUNT(AUTO) 2.32 MIL/uL (3.63-4.92); WHITE BLOOD COUNT (AUTO) 1.8 K/uL (3.8-11.8)
[2023-12-28 10:31] LABS: LYMPHOCYTES % (MANUAL) 60 % (20-40); NEUTROPHILS % (MANUAL) 25 % (42-75)
[2023-12-28 10:32] LABS: ANISOCYTOSIS 1+; EOSINOPHILS % (MANUAL) 5 % (0-8); MONOCYTES % (MANUAL) 10 % (2-10); PLATELET ESTIMATE MARKED DECREASED
[2023-12-28 13:03] VITALS: BP 114/52; O2SAT 98
[2023-12-28 13:46] LABS: HEMATOCRIT 21.5 % (31.2-41.9); HEMOGLOBIN 7.5 g/dL (10.9-14.3)
[2023-12-28 15:13] VITALS: BP 150/65; TEMP 97.6; O2SAT 96
[2023-12-28 20:03] VITALS: BP 116/53; TEMP 97.6; O2SAT 100
[2023-12-29] MEDS: HYDROCORTISONE 1% CREAM 30 GM TUBE TP PRN (10:38)
[2023-12-29 14:49] LABS: EOSINOPHILS # (AUTO) 0.1 K/uL (0.0-0.7); HEMOGLOBIN 8.2 g/dL (10.9-14.3); MEAN CORPUSCULAR HGB CONC 34 g/dL (32.3-35.6); MONOCYTES # (AUTO) 0.2 K/uL (0.1-1.30); NEUTROPHILS # (AUTO) 0.6 K/uL (1.8-8.9); RED BLOOD CELL COUNT(AUTO) 2.61 MIL/uL (3.63-4.92)
[2023-12-29 14:51] LABS: BASOPHILS % (AUTO) 0.3 % (0.0-2.0); EOSINOPHILS % (AUTO) 2.9 % (0.0-7.0); HEMATOCRIT 24.1 % (31.2-41.9); LYMPHOCYTES # (AUTO) 1.1 K/uL (0.8-4.8); LYMPHOCYTES % (AUTO) 55.6 % (20.5-51.5); MEAN CORPUSCULAR HEMOGLOBIN 31.6 uug (24.7-32.8); MEAN CORPUSCULAR VOLUME 92.5 fL (75.5-95.3); MONOCYTES % (AUTO) 10.4 % (0.0-11.0); NEUTROPHILS % (AUTO) 30.8 % (38.5-71.5); RED CELL DISTRIBUTION WIDTH 19.8 % (12.3-17.7)
[2023-12-29 15:40] LABS: DIFFERENTIAL COMMENT 1; PLATELET COUNT (AUTO) 24 K/uL (179-408)
[2023-12-29 18:47] VITALS: BP 131/50; TEMP 97.9; O2SAT 100
[2023-12-29 20:15] LABS: BAND % (MANUAL) 1 % (0-10); EOSINOPHILS % (MANUAL) 3 % (0-8); LYMPHOCYTES % (MANUAL) 51 % (20-40); MONOCYTES % (MANUAL) 10 % (2-10); NEUTROPHILS % (MANUAL) 35 % (42-75); PLATELET ESTIMATE MARKED DECREASED
[2023-12-29 20:16] LABS: ANISOCYTOSIS 2+
[2023-12-29 20:17] LABS: OVALOCYTES 1+; TEAR DROP CELLS 1+
[2023-12-29 20:18] VITALS: BP 119/52; TEMP 98; O2SAT 95
[2023-12-29] MEDS: CYCLOBENZAPRINE HCL 10 MG TABLET PO PRN (23:18)
[2023-12-30 05:50] VITALS: BP 103/59; TEMP 98.1; O2SAT 96
[2023-12-30 07:23] LABS: BASOPHILS % (AUTO) 0.4 % (0.0-2.0); EOSINOPHILS # (AUTO) 0.1 K/uL (0.0-0.7); EOSINOPHILS % (AUTO) 2.7 % (0.0-7.0); HEMATOCRIT 21.2 % (31.2-41.9); HEMOGLOBIN 7.6 g/dL (10.9-14.3); LYMPHOCYTES # (AUTO) 1.2 K/uL (0.8-4.8); LYMPHOCYTES % (AUTO) 57.6 % (20.5-51.5); MEAN CORPUSCULAR HEMOGLOBIN 32.8 uug (24.7-32.8); MEAN CORPUSCULAR HGB CONC 36 g/dL (32.3-35.6); MEAN CORPUSCULAR VOLUME 91.3 fL (75.5-95.3); MONOCYTES # (AUTO) 0.3 K/uL (0.1-1.30); MONOCYTES % (AUTO) 12.6 % (0.0-11.0); NEUTROPHILS # (AUTO) 0.6 K/uL (1.8-8.9); NEUTROPHILS % (AUTO) 26.7 % (38.5-71.5); RED CELL DISTRIBUTION WIDTH 19.1 % (12.3-17.7); WHITE BLOOD COUNT (AUTO) 2.1 K/uL (3.8-11.8)
[2023-12-30 07:34] LABS: RED BLOOD CELL COUNT(AUTO) 2.32 MIL/uL (3.63-4.92)
[2023-12-30 07:36] LABS: DIFFERENTIAL COMMENT 1; PLATELET COUNT (AUTO) 18 K/uL (179-408)
[2023-12-30 09:13] LABS: ANISOCYTOSIS 2+; EOSINOPHILS % (MANUAL) 2 % (0-8); LYMPHOCYTES % (MANUAL) 58 % (20-40); MONOCYTES % (MANUAL) 13 % (2-10); NEUTROPHILS % (MANUAL) 27 % (42-75); PLATELET ESTIMATE MARKED DECREASED
[2023-12-30 16:00] VITALS: BP 135/70; TEMP 97.8; O2SAT 97
[2023-12-30 19:27] VITALS: BP 116/46; TEMP 98.1; O2SAT 99
[2023-12-30] MEDS: CLOTRIMAZOLE 1% CREAM 30 GM TUBE TOP SCH (21:11)
[2023-12-31 00:22] VITALS: BP 134/52; TEMP 98
[2023-12-31 00:37] VITALS: BP 126/58; TEMP 97.7
[2023-12-31 02:15] VITALS: BP 116/45; TEMP 97.8
[2023-12-31 06:00] VITALS: BP 125/48; TEMP 98; O2SAT 97
[2023-12-31 07:04] LABS: BASOPHILS % (AUTO) 0.7 % (0.0-2.0); EOSINOPHILS # (AUTO) 0.1 K/uL (0.0-0.7); EOSINOPHILS % (AUTO) 3.5 % (0.0-7.0); HEMATOCRIT 21.5 % (31.2-41.9); HEMOGLOBIN 7.6 g/dL (10.9-14.3); LYMPHOCYTES # (AUTO) 1.1 K/uL (0.8-4.8); LYMPHOCYTES % (AUTO) 58.6 % (20.5-51.5); MEAN CORPUSCULAR HEMOGLOBIN 32.8 uug (24.7-32.8); MEAN CORPUSCULAR HGB CONC 36 g/dL (32.3-35.6); MEAN CORPUSCULAR VOLUME 92.5 fL (75.5-95.3); MONOCYTES # (AUTO) 0.2 K/uL (0.1-1.30); MONOCYTES % (AUTO) 10.4 % (0.0-11.0); NEUTROPHILS # (AUTO) 0.5 K/uL (1.8-8.9); NEUTROPHILS % (AUTO) 26.8 % (38.5-71.5); RED CELL DISTRIBUTION WIDTH 19.9 % (12.3-17.7)
[2023-12-31 07:07] LABS: DIFFERENTIAL COMMENT 1; PLATELET COUNT (AUTO) 27 K/uL (179-408); RED BLOOD CELL COUNT(AUTO) 2.33 MIL/uL (3.63-4.92); WHITE BLOOD COUNT (AUTO) 1.8 K/uL (3.8-11.8)
[2023-12-31 14:44] LABS: BAND % (MANUAL) 4 % (0-10); EOSINOPHILS % (MANUAL) 5 % (0-8); LYMPHOCYTES % (MANUAL) 57 % (20-40); MONOCYTES % (MANUAL) 9 % (2-10); NEUTROPHILS % (MANUAL) 25 % (42-75)
[2023-12-31 14:45] LABS: ANISOCYTOSIS 2+; PLATELET ESTIMATE MARKED DECREASED
[2023-12-31 16:00] VITALS: BP 137/59; TEMP 98; O2SAT 99
[2023-12-31 20:00] VITALS: BP 105/60; TEMP 98.1; O2SAT 98
[2024-01-01 06:00] VITALS: BP 111/54; TEMP 97.5; O2SAT 95
[2024-01-01] MEDS: ACETAMINOPHEN 325 MG TABLET PO ONE (08:42)
[2024-01-01] MEDS: diphenhydrAMINE 50 MG/1 ML VIAL IV ONE (08:42)
[2024-01-01 11:21] LABS: ALANINE AMINOTRANSFERASE 25 U/L (14-59); ALBUMIN 3.4 g/dL (3.4-5.0); ALKALINE PHOSPHATASE 101 U/L (50-136); ASPARTATE AMINOTRANSFERASE 30 U/L (15-37); BILIRUBIN,TOTAL 0.8 mg/dL (0.2-1.0); CALCIUM 9.7 mg/dL (8.5-10.1); CARBON DIOXIDE 26 mmol/L (21-32); CHLORIDE 99 mmol/L (98-107); CREATININE 0.8 mg/dL (0.6-1.3); GLUCOSE 121 mg/dL (74-106); POTASSIUM 4.1 mmol/L (3.5-5.1); SODIUM SERUM 136 mmol/L (136-145); TOTAL PROTEIN, SERUM 8.1 g/dL (6.4-8.2); UREA NITROGEN, BLOOD 34 mg/dL (7-18)
[2024-01-01 15:26] VITALS: BP 117/59; TEMP 98.4; O2SAT 99
[2024-01-01 20:00] VITALS: BP 112/51; TEMP 98.5; O2SAT 98
[2024-01-02 05:00] VITALS: BP 105/58; TEMP 97.9; O2SAT 100
[2024-01-02 07:36] LABS: BASOPHILS % (AUTO) 0.4 % (0.0-2.0); EOSINOPHILS # (AUTO) 0.1 K/uL (0.0-0.7); EOSINOPHILS % (AUTO) 2.9 % (0.0-7.0); LYMPHOCYTES % (AUTO) 51.9 % (20.5-51.5); MEAN CORPUSCULAR HEMOGLOBIN 32.3 uug (24.7-32.8); MEAN CORPUSCULAR HGB CONC 35 g/dL (32.3-35.6); MEAN CORPUSCULAR VOLUME 92.6 fL (75.5-95.3); MONOCYTES # (AUTO) 0.2 K/uL (0.1-1.30); MONOCYTES % (AUTO) 9.1 % (0.0-11.0); NEUTROPHILS # (AUTO) 0.7 K/uL (1.8-8.9); NEUTROPHILS % (AUTO) 35.7 % (38.5-71.5); RED CELL DISTRIBUTION WIDTH 20.1 % (12.3-17.7)
[2024-01-02 07:41] LABS: HEMATOCRIT 20.3 % (31.2-41.9); HEMOGLOBIN 7.1 g/dL (10.9-14.3); RED BLOOD CELL COUNT(AUTO) 2.19 MIL/uL (3.63-4.92)
[2024-01-02 07:45] LABS: DIFFERENTIAL COMMENT 1; PLATELET COUNT (AUTO) 20 K/uL (179-408)
[2024-01-02 08:25] LABS: CALCIUM 9.4 mg/dL (8.5-10.1); CARBON DIOXIDE 26 mmol/L (21-32); CREATININE 0.8 mg/dL (0.6-1.3); GLUCOSE 91 mg/dL (74-106); UREA NITROGEN, BLOOD 28 mg/dL (7-18)
[2024-01-02 09:04] LABS: CHLORIDE 100 mmol/L (98-107); POTASSIUM 3.9 mmol/L (3.5-5.1); SODIUM SERUM 136 mmol/L (136-145)
[2024-01-02 10:43] LABS: ANISOCYTOSIS 2+; EOSINOPHILS % (MANUAL) 3 % (0-8); LYMPHOCYTES % (MANUAL) 52 % (20-40); MONOCYTES % (MANUAL) 9 % (2-10); NEUTROPHILS % (MANUAL) 36 % (42-75); PLATELET ESTIMATE MARKED DECREASED
[2024-01-02 15:11] VITALS: BP 126/55; TEMP 98; O2SAT 100
[2024-01-02] MEDS: NEOMY/BACITRAC/POLYMI OINT 28.35 GM TUBE TOP SCH (18:56)
[2024-01-02 20:16] VITALS: BP 119/55; TEMP 98; O2SAT 100
[2024-01-03 06:57] LABS: BASOPHILS % (AUTO) 0.5 % (0.0-2.0); EOSINOPHILS # (AUTO) 0.1 K/uL (0.0-0.7); LYMPHOCYTES # (AUTO) 1.1 K/uL (0.8-4.8); LYMPHOCYTES % (AUTO) 53.3 % (20.5-51.5); MEAN CORPUSCULAR HGB CONC 35 g/dL (32.3-35.6); MEAN CORPUSCULAR VOLUME 93.3 fL (75.5-95.3); MONOCYTES # (AUTO) 0.2 K/uL (0.1-1.30); NEUTROPHILS # (AUTO) 0.7 K/uL (1.8-8.9); NEUTROPHILS % (AUTO) 35.2 % (38.5-71.5); RED CELL DISTRIBUTION WIDTH 21.1 % (12.3-17.7)
[2024-01-03 07:22] LABS: CALCIUM 9.8 mg/dL (8.5-10.1); CARBON DIOXIDE 29 mmol/L (21-32); CHLORIDE 101 mmol/L (98-107); CREATININE 0.8 mg/dL (0.6-1.3); GLUCOSE 110 mg/dL (74-106); POTASSIUM 3.8 mmol/L (3.5-5.1); SODIUM SERUM 138 mmol/L (136-145); UREA NITROGEN, BLOOD 28 mg/dL (7-18)
[2024-01-03 07:32] LABS: DIFFERENTIAL COMMENT 1; HEMATOCRIT 20.3 % (31.2-41.9); HEMOGLOBIN 7.2 g/dL (10.9-14.3); PLATELET COUNT (AUTO) 22 K/uL (179-408); RED BLOOD CELL COUNT(AUTO) 2.18 MIL/uL (3.63-4.92)
[2024-01-03 15:13] VITALS: BP 109/61; TEMP 97.6; O2SAT 97
[2024-01-03 19:51] VITALS: BP 101/59; TEMP 97.8; O2SAT 99
[2024-01-04 05:09] VITALS: BP 125/62; TEMP 98; O2SAT 98
[2024-01-04 06:51] LABS: BASOPHILS % (AUTO) 0.8 % (0.0-2.0); EOSINOPHILS # (AUTO) 0.1 K/uL (0.0-0.7); EOSINOPHILS % (AUTO) 3.1 % (0.0-7.0); LYMPHOCYTES % (AUTO) 54.2 % (20.5-51.5); MEAN CORPUSCULAR HEMOGLOBIN 32.8 uug (24.7-32.8); MEAN CORPUSCULAR HGB CONC 35 g/dL (32.3-35.6); MEAN CORPUSCULAR VOLUME 92.6 fL (75.5-95.3); MONOCYTES # (AUTO) 0.2 K/uL (0.1-1.30); MONOCYTES % (AUTO) 8.7 % (0.0-11.0); NEUTROPHILS # (AUTO) 0.6 K/uL (1.8-8.9); NEUTROPHILS % (AUTO) 33.2 % (38.5-71.5); RED CELL DISTRIBUTION WIDTH 21.3 % (12.3-17.7)
[2024-01-04 07:02] LABS: CALCIUM 9.4 mg/dL (8.5-10.1); CARBON DIOXIDE 30 mmol/L (21-32); CHLORIDE 100 mmol/L (98-107); CREATININE 0.8 mg/dL (0.6-1.3); GLUCOSE 92 mg/dL (74-106); POTASSIUM 3.7 mmol/L (3.5-5.1); SODIUM SERUM 137 mmol/L (136-145); UREA NITROGEN, BLOOD 24 mg/dL (7-18)
[2024-01-04 07:12] LABS: HEMATOCRIT 19.8 % (31.2-41.9); RED BLOOD CELL COUNT(AUTO) 2.14 MIL/uL (3.63-4.92); WHITE BLOOD COUNT (AUTO) 1.8 K/uL (3.8-11.8)
[2024-01-04 07:13] LABS: DIFFERENTIAL COMMENT 1; PLATELET COUNT (AUTO) 18 K/uL (179-408)
[2024-01-04 08:54] LABS: ANISOCYTOSIS 3+; BASOPHILS % (MANUAL) 1 % (0-2); EOSINOPHILS % (MANUAL) 3 % (0-8); LYMPHOCYTES % (MANUAL) 54 % (20-40); MONOCYTES % (MANUAL) 9 % (2-10); NEUTROPHILS % (MANUAL) 33 % (42-75); PLATELET ESTIMATE MARKED DECREASED
[2024-01-04 10:15] LABS: HEMATOCRIT 21.7 % (31.2-41.9); HEMOGLOBIN 7.5 g/dL (10.9-14.3)
[2024-01-04 16:33] VITALS: BP 132/44; TEMP 98; O2SAT 99
[2024-01-04 19:53] VITALS: BP 132/66; TEMP 97.4; O2SAT 100
[2024-01-05 05:36] VITALS: BP 140/67; TEMP 97.6; O2SAT 98
[2024-01-05 07:50] LABS: BASOPHILS % (AUTO) 0.5 % (0.0-2.0); EOSINOPHILS # (AUTO) 0.1 K/uL (0.0-0.7); EOSINOPHILS % (AUTO) 3.4 % (0.0-7.0); LYMPHOCYTES # (AUTO) 1.1 K/uL (0.8-4.8); LYMPHOCYTES % (AUTO) 57.2 % (20.5-51.5); MEAN CORPUSCULAR HEMOGLOBIN 32.5 uug (24.7-32.8); MEAN CORPUSCULAR HGB CONC 35 g/dL (32.3-35.6); MEAN CORPUSCULAR VOLUME 92.9 fL (75.5-95.3); MONOCYTES # (AUTO) 0.2 K/uL (0.1-1.30); MONOCYTES % (AUTO) 7.7 % (0.0-11.0); NEUTROPHILS # (AUTO) 0.6 K/uL (1.8-8.9); NEUTROPHILS % (AUTO) 31.2 % (38.5-71.5); RED CELL DISTRIBUTION WIDTH 20.8 % (12.3-17.7)
[2024-01-05 07:53] LABS: HEMATOCRIT 20.3 % (31.2-41.9); HEMOGLOBIN 7.1 g/dL (10.9-14.3); RED BLOOD CELL COUNT(AUTO) 2.18 MIL/uL (3.63-4.92)
[2024-01-05 07:55] LABS: DIFFERENTIAL COMMENT 1; PLATELET COUNT (AUTO) 17 K/uL (179-408)
[2024-01-05 07:58] LABS: CALCIUM 9.6 mg/dL (8.5-10.1); CARBON DIOXIDE 27 mmol/L (21-32); CHLORIDE 102 mmol/L (98-107); CREATININE 0.8 mg/dL (0.6-1.3); GLUCOSE 94 mg/dL (74-106); POTASSIUM 3.9 mmol/L (3.5-5.1); SODIUM SERUM 137 mmol/L (136-145); UREA NITROGEN, BLOOD 25 mg/dL (7-18)
[2024-01-05 09:45] LABS: EOSINOPHILS % (MANUAL) 4 % (0-8); LYMPHOCYTES % (MANUAL) 57 % (20-40); MONOCYTES % (MANUAL) 8 % (2-10); NEUTROPHILS % (MANUAL) 31 % (42-75); PLATELET ESTIMATE MARKED DECREASED
[2024-01-05] MEDS: ACETAMINOPHEN 325 MG TABLET PO ONE (11:13)
[2024-01-05] MEDS: diphenhydrAMINE 50 MG/1 ML VIAL IV ONE (11:31)
[2024-01-05 12:17] VITALS: BP 120/52; TEMP 97.9
[2024-01-05 12:33] VITALS: BP 110/40; TEMP 98.5
[2024-01-05 13:03] VITALS: BP 111/53; TEMP 97.9
[2024-01-05 14:31] VITALS: BP 126/42; TEMP 98
[2024-01-05 16:43] VITALS: BP 113/44; TEMP 97.9; O2SAT 100
[2024-01-05 16:46] LABS: HEMATOCRIT 20.4 % (31.2-41.9)
== END 2024-01-05 19:07 | DRG 280 ==
LOC: SRC1 15:51 → UNDOADMIN 15:51
PROVIDERS: ADMIT Physical Medicine & Rehabilitation Pain Medicine; ATTEND Physical Medicine & Rehabilitation Pain Medicine
PROC: 6A551Z2 Pheresis of Platelets, Multiple (ICD-10-PCS; principal; 2023-12-23)
PROC: 30233N1 Transfusion of Nonautologous Red Blood Cells into Peripheral Vein, Percutaneous Approach (ICD-10-PCS; 2023-12-25)
DX: I11.0 Hypertensive heart disease with heart failure (principal); E43 Unspecified severe protein-calorie malnutrition; I21.A1 Myocardial infarction type 2; G92.8 Other toxic encephalopathy; I50.31 Acute diastolic (congestive) heart failure; J69.0 Pneumonitis due to inhalation of food and vomit; L97.919 Non-pressure chronic ulcer of unspecified part of right lower leg with unspecified severity; L97.929 Non-pressure chronic ulcer of unspecified part of left lower leg with unspecified severity; N39.0 Urinary tract infection, site not specified; D61.818 Other pancytopenia; D68.59 Other primary thrombophilia; E87.1 Hypo-osmolality and hyponatremia; N17.9 Acute kidney failure, unspecified; R17 Unspecified jaundice; D68.9 Coagulation defect, unspecified; K21.9 Gastro-esophageal reflux disease without esophagitis; E88.09 Other disorders of plasma-protein metabolism, not elsewhere classified; D72.820 Lymphocytosis (symptomatic); E03.9 Hypothyroidism, unspecified; E83.39 Other disorders of phosphorus metabolism; G89.29 Other chronic pain; I83.009 Varicose veins of unspecified lower extremity with ulcer of unspecified site; Z79.891 Long term (current) use of opiate analgesic; I08.1 Rheumatic disorders of both mitral and tricuspid valves; R97.1 Elevated cancer antigen 125 [CA 125]
CPT/HCPCS: 36415; 70030-TC; 76857; 83735; 84100; 85018; 85025; 85730; 86850; 86900; 86901; 86920; 88185; 97535-GO-CO; A9150; J1200; P9016; P9035; Q0163

== ENCOUNTER 2024-03-16 16:46 | Inpatient (IN) | payer MEDICARE, OTHER ==
[2024-03-15] MEDS: VANCOMYCIN IV 1,000 MG in IV DEXTROSE 5% 250 ML IV ONE (22:00)
[2024-03-15] MEDS: IV NORMAL SALINE 500 ML BAG IV ONE (22:00)
[2024-03-15] MEDS: POTASSIUM CHLORIDE 20 MEQ TAB.PRT.SR PO ONE (22:00)
[~2024-03-16] VITALS: Ht 167.6 cm; Wt 88.5 kg
[2024-03-16] MEDS: PANTOPRAZOLE SODIUM IV 80 MG in IV DEXTROSE 5% 100 ML IV ONE (01:20)
[~2024-03-16 16:46] MED LIST changes: +ACET-2154 PO; +ACID1TAB12 PO; +GABA100C PO; +HYDR-3980 PO; +LACT-239 PO; +MAGN400O6 PO; +METO25TA6 PO; +MORP2VIA IV; +PETR113P TP; +ZOLP5TAB2 PO
[2024-03-16 19:12] LABS: CALCIUM 8.2 mg/dL (8.5-10.1); CARBON DIOXIDE 28 mmol/L (21-32); CHLORIDE 99 mmol/L (98-107); GLUCOSE 109 mg/dL (74-106); POTASSIUM 3.3 mmol/L (3.5-5.1); SODIUM SERUM 136 mmol/L (136-145); UREA NITROGEN, BLOOD 11 mg/dL (7-18)
[2024-03-16 19:14] LABS: BASOPHILS % (AUTO) 0.4 % (0.0-2.0); DIFFERENTIAL COMMENT 0; EOSINOPHILS % (AUTO) 0.4 % (0.0-7.0); LYMPHOCYTES # (AUTO) 1.1 K/uL (0.8-4.8); LYMPHOCYTES % (AUTO) 44.9 % (20.5-51.5); MEAN CORPUSCULAR HEMOGLOBIN 34.3 uug (24.7-32.8); MEAN CORPUSCULAR HGB CONC 33 g/dL (32.3-35.6); MEAN CORPUSCULAR VOLUME 102.7 fL (75.5-95.3); MONOCYTES # (AUTO) 0.1 K/uL (0.1-1.30); MONOCYTES % (AUTO) 6.2 % (0.0-11.0); NEUTROPHILS # (AUTO) 1.2 K/uL (1.8-8.9); NEUTROPHILS % (AUTO) 48.1 % (38.5-71.5); RED CELL DISTRIBUTION WIDTH 20.8 % (12.3-17.7); WHITE BLOOD COUNT (AUTO) 2.4 K/uL (3.8-11.8)
[2024-03-16 19:17] LABS: RED BLOOD CELL COUNT(AUTO) 1.47 MIL/uL (3.63-4.92)
[2024-03-16 19:18] LABS: ALANINE AMINOTRANSFERASE 16 U/L (14-59); ALBUMIN 2.6 g/dL (3.4-5.0); ALKALINE PHOSPHATASE 70 U/L (50-136); ASPARTATE AMINOTRANSFERASE 16 U/L (15-37); BILIRUBIN,DIRECT 0.3 mg/dL (0.0-0.2); BILIRUBIN,TOTAL 0.7 mg/dL (0.2-1.0); LIPASE 92 U/L (16-77); TOTAL PROTEIN, SERUM 7.3 g/dL (6.4-8.2)
[2024-03-16 19:22] LABS: HEMOGLOBIN 5.1 g/dL (10.9-14.3)
[2024-03-16 19:23] LABS: HEMATOCRIT 15.1 % (31.2-41.9); PLATELET COUNT (AUTO) 19 K/uL (179-408)
[2024-03-16] MEDS ORDERED: PANTOPRAZOLE SODIUM 40 MG VIAL ONE (22:06)
[2024-03-16] MEDS ORDERED: VANCOMYCIN IV 200 ML ONE (22:07)
[2024-03-16] MEDS ORDERED: POTASSIUM CHLORIDE 20 MEQ TAB.PRT.SR ONE (22:07)
[2024-03-16 23:36] LABS: EOSINOPHILS % (MANUAL) 1 % (0-8); LYMPHOCYTES % (MANUAL) 42 % (20-40); MONOCYTES % (MANUAL) 7 % (2-10); NEUTROPHILS % (MANUAL) 50 % (42-75)
[2024-03-17] VITALS (22 sets, daily range): BP systolic 106–145; BP diastolic 42–88; TEMP 97.8–98.9; O2SAT 96–100
[2024-03-17] MEDS ORDERED: HYDROCODONE/APAP 10-325 MG TABLET PO PRN (03:15)
[2024-03-17] MEDS ORDERED: MAGNESIUM HYDROXIDE 30 ML LIQUID UDC PO PRN (03:15)
[2024-03-17] MEDS ORDERED: ACETAMINOPHEN 325 MG TABLET PO PRN (03:15)
[2024-03-17] MEDS ORDERED: ONDANSETRON 4 MG/2 ML VIAL IV PRN (03:15)
[2024-03-17] MEDS: GABAPENTIN 100 MG CAPSULE PO SCH (09:00)
[2024-03-17] MEDS: PANTOPRAZOLE SODIUM 40 MG VIAL IV SCH (09:00)
[2024-03-17] MEDS: COMPLEAT MODIFIED FORMULA 1000 ML LIQUID PO SCH (09:00)
[2024-03-17] MEDS: METOPROLOL TARTRATE 25 MG TABLET PO SCH (09:15)
[2024-03-17] MEDS ORDERED: LOPE2TAB25 PO (09:30)
[2024-03-17] MEDS ORDERED: CRAN450T9 PO (09:30)
[2024-03-17] MEDS ORDERED: BISA10SU61 RC (09:30)
[2024-03-17] MEDS ORDERED: DEXT15LI PO (09:30)
[2024-03-17 10:42] LABS: BASOPHILS % (AUTO) 0.2 % (0.0-2.0); EOSINOPHILS % (AUTO) 0.4 % (0.0-7.0); LYMPHOCYTES # (AUTO) 0.9 K/uL (0.8-4.8); LYMPHOCYTES % (AUTO) 37.2 % (20.5-51.5); MEAN CORPUSCULAR HEMOGLOBIN 32.7 uug (24.7-32.8); MEAN CORPUSCULAR HGB CONC 34 g/dL (32.3-35.6); MEAN CORPUSCULAR VOLUME 96.4 fL (75.5-95.3); MONOCYTES # (AUTO) 0.2 K/uL (0.1-1.30); MONOCYTES % (AUTO) 6.7 % (0.0-11.0); NEUTROPHILS # (AUTO) 1.3 K/uL (1.8-8.9); NEUTROPHILS % (AUTO) 55.5 % (38.5-71.5); RED CELL DISTRIBUTION WIDTH 27.1 % (12.3-17.7); RETICULOCYTE COUNT 1.5 % (0.5-2.2); WHITE BLOOD COUNT (AUTO) 2.4 K/uL (3.8-11.8)
[2024-03-17 11:12] LABS: RED BLOOD CELL COUNT(AUTO) 1.73 MIL/uL (3.63-4.92)
[2024-03-17 11:14] LABS: HEMATOCRIT 16.7 % (31.2-41.9); HEMOGLOBIN 5.7 g/dL (10.9-14.3)
[2024-03-17 11:15] LABS: DIFFERENTIAL COMMENT 1; PLATELET COUNT (AUTO) 20 K/uL (179-408)
[2024-03-17 11:55] LABS: EOSINOPHILS % (MANUAL) 1 % (0-8); LYMPHOCYTES % (MANUAL) 35 % (20-40); MONOCYTES % (MANUAL) 4 % (2-10); NEUTROPHILS % (MANUAL) 60 % (42-75); PLATELET ESTIMATE DECREASED
[2024-03-17 12:03] LABS: CALCIUM 8.3 mg/dL (8.5-10.1); CARBON DIOXIDE 27 mmol/L (21-32); CHLORIDE 99 mmol/L (98-107); CREATININE 0.8 mg/dL (0.6-1.3); GLUCOSE 100 mg/dL (74-106); MAGNESIUM 1.6 mg/dL (1.8-2.4); PHOSPHOROUS 2.8 mg/dL (2.5-4.9); POTASSIUM 3.4 mmol/L (3.5-5.1); SODIUM SERUM 132 mmol/L (136-145); UREA NITROGEN, BLOOD 6 mg/dL (7-18)
[2024-03-17 16:40] LABS: C-REACTIVE PROTEIN 9.55 mg/dL (0.00-0.30)
[2024-03-17 16:47] LABS: THYROID STIMULATING HORMONE 1.056 mIU/mL (0.358-3.740)
[2024-03-17 17:08] LABS: *RHEUMATOID FACTOR SCREEN NEGATIVE (NEGATIVE)
[2024-03-17 17:44] LABS: HIV-1 p24 ANTIGEN NON REACTIVE (NONREACTIVE); HIV-1/2 ANTIBODY NON REACTIVE (NONREACTIVE)
[2024-03-18 01:03] LABS: LYMPHOCYTES # (AUTO) 1.1 K/uL (0.8-4.8); MONOCYTES # (AUTO) 0.2 K/uL (0.1-1.30); NEUTROPHILS # (AUTO) 1.3 K/uL (1.8-8.9); RED BLOOD CELL COUNT(AUTO) 2.64 MIL/uL (3.63-4.92)
[2024-03-18 01:06] LABS: BASOPHILS % (AUTO) 0.5 % (0.0-2.0); HEMATOCRIT 24.3 % (31.2-41.9); HEMOGLOBIN 8.3 g/dL (10.9-14.3); LYMPHOCYTES % (AUTO) 41.2 % (20.5-51.5); MEAN CORPUSCULAR HEMOGLOBIN 31.5 uug (24.7-32.8); MEAN CORPUSCULAR HGB CONC 34 g/dL (32.3-35.6); MEAN CORPUSCULAR VOLUME 92.2 fL (75.5-95.3); MONOCYTES % (AUTO) 8.8 % (0.0-11.0); NEUTROPHILS % (AUTO) 48.5 % (38.5-71.5); RED CELL DISTRIBUTION WIDTH 23.6 % (12.3-17.7); WHITE BLOOD COUNT (AUTO) 2.6 K/uL (3.8-11.8)
[2024-03-18 01:20] LABS: DIFFERENTIAL COMMENT 1
[2024-03-18 01:21] LABS: PLATELET COUNT (AUTO) 21 K/uL (179-408)
[2024-03-18 05:13] LABS: ANISOCYTOSIS 2+; BAND % (MANUAL) 1 % (0-10); EOSINOPHILS % (MANUAL) 2 % (0-8); HYPOCHROMASIA 1+; LYMPHOCYTES % (MANUAL) 46 % (20-40); METAMYELOCYTES % 1 % (0-1); MONOCYTES % (MANUAL) 4 % (2-10); NEUTROPHILS % (MANUAL) 46 % (42-75); PLATELET ESTIMATE DECREASED
[2024-03-18 07:20] VITALS: BP 147/60; TEMP 98.1; O2SAT 99
[2024-03-18 07:52] LABS: FERRITIN 586 ng/mL (8-252)
[2024-03-18 08:28] LABS: IRON, SERUM 132 ug/dL (50-175)
[2024-03-18 11:32] VITALS: BP 119/58; TEMP 98.2; O2SAT 96
[2024-03-18 15:24] VITALS: BP 137/58; TEMP 98.2; O2SAT 99
[2024-03-18] MEDS ORDERED: IV NORMAL SALINE 250 ML IV ONE (15:42)
[2024-03-18] MEDS ORDERED: SWABABLE VALVE TRANSFER SET EA MC ONE (15:42)
[2024-03-18] MEDS ORDERED: IOHEXOL 300MG/ML 100 ML INFUS..BTL ONE (15:42)
[2024-03-18 19:48] VITALS: BP 150/66; TEMP 98.3; O2SAT 98
[2024-03-19] MEDS ORDERED: PANTOPRAZOLE SODIUM 40 MG TABLET.DR PO SCH (07:00)
[2024-03-20 15:07] LABS: *ANTI-SCLERODERMA-70 AB <0.2 AI (0.0-0.9); *RNP ANTIBODIES 0.2 AI (0.0-0.9); *SJOGREN'S ANTI-SS-A 0.2 AI (0.0-0.9); *SJOGREN'S ANTI-SS-B <0.2 AI (0.0-0.9); *SMITH ANTIBODIES <0.2 AI (0.0-0.9); A/G RATIO 0.8 (0.7-1.7); ALPHA-1-GLOBULIN 0.5 g/dL (0.0-0.4); ALPHA-2-GLOBULIN 0.6 g/dL (0.4-1.0); ANTI-DNA(DS) AB, QN 1 IU/mL (0-9); ANTI-NUCLEAR AB DIRECT Negative (Negative); BETA GLOBULIN 0.9 g/dL (0.7-1.3); GAMMA GLOBULIN 1.9 g/dL (0.4-1.8); GLOBULIN, TOTAL 3.9 g/dL (2.2-3.9); M-SPIKE Not Observed g/dL (Not Observed); PROTEIN, TOTAL 6.9 g/dL (6.0-8.5)
== END 2024-03-18 18:00 | DRG 809 ==
LOC: ER 16:46 → MEDSURG3 03-17 02:52
PROVIDERS: ADMIT Internal Medicine; ATTEND Internal Medicine
PROC: 30233N1 Transfusion of Nonautologous Red Blood Cells into Peripheral Vein, Percutaneous Approach (ICD-10-PCS; principal; 2024-03-17)
DX: D61.818 Other pancytopenia (principal); D47.1 Chronic myeloproliferative disease; L03.115 Cellulitis of right lower limb; E87.1 Hypo-osmolality and hyponatremia; I83.018 Varicose veins of right lower extremity with ulcer other part of lower leg; I83.028 Varicose veins of left lower extremity with ulcer other part of lower leg; K74.60 Unspecified cirrhosis of liver; G62.9 Polyneuropathy, unspecified; G89.29 Other chronic pain; E88.09 Other disorders of plasma-protein metabolism, not elsewhere classified; E03.9 Hypothyroidism, unspecified; I25.2 Old myocardial infarction; I11.0 Hypertensive heart disease with heart failure; I50.9 Heart failure, unspecified
CPT/HCPCS: 36415; 70030-TC; 71045; 82746; 82784; 83010; 83550; 83615; 83690; 83735; 84100; 84155; 84165; 84443; 85025; 85730; 86038; 86140; 86334; 86430; 86705; 86706; 86803; 86850; 86900; 86901; 86920; 87340; 87806; A4606; A4663; A6213; G0378; J2470; J3370; J7040; P9016; Q9967

== ENCOUNTER 2024-06-05 14:14 | Inpatient (IN) | payer MEDICARE, OTHER ==
[~2024-06-05] VITALS: Ht 170.2 cm; Wt 69.9 kg
[~2024-06-05 14:14] MED LIST changes: +BISA10SU61 RC; +CRAN450T9 PO; +DEXT15LI PO; -IBUP-1490 PO; -LACT-239 PO; +LOPE2TAB25 PO; -MAGN400O6 PO; -MORP2VIA IV; -PETR113P TP; -ZOLP5TAB2 PO
[2024-06-05 14:31] LABS: BASOPHILS % (AUTO) 0.6 % (0.0-2.0); EOSINOPHILS % (AUTO) 0.8 % (0.0-7.0); LYMPHOCYTES # (AUTO) 0.6 K/uL (0.8-4.8); LYMPHOCYTES % (AUTO) 29.7 % (20.5-51.5); MEAN CORPUSCULAR HEMOGLOBIN 31.8 uug (24.7-32.8); MEAN CORPUSCULAR HGB CONC 34 g/dL (32.3-35.6); MEAN CORPUSCULAR VOLUME 93.3 fL (75.5-95.3); MONOCYTES # (AUTO) 0.2 K/uL (0.1-1.30); MONOCYTES % (AUTO) 9.9 % (0.0-11.0); NEUTROPHILS # (AUTO) 1.2 K/uL (1.8-8.9); RED CELL DISTRIBUTION WIDTH 21.5 % (12.3-17.7); WHITE BLOOD COUNT (AUTO) 2.1 K/uL (3.8-11.8)
[2024-06-05 14:41] LABS: CALCIUM 8.7 mg/dL (8.5-10.1); CARBON DIOXIDE 27 mmol/L (21-32); CHLORIDE 93 mmol/L (98-107); GLUCOSE 136 mg/dL (74-106); SODIUM SERUM 129 mmol/L (136-145); UREA NITROGEN, BLOOD 15 mg/dL (7-18)
[2024-06-05 14:47] LABS: ALANINE AMINOTRANSFERASE 17 U/L (14-59); ALBUMIN 2.2 g/dL (3.4-5.0); ALKALINE PHOSPHATASE 89 U/L (50-136); ASPARTATE AMINOTRANSFERASE 23 U/L (15-37); BILIRUBIN,DIRECT 0.3 mg/dL (0.0-0.2); BILIRUBIN,TOTAL 0.7 mg/dL (0.2-1.0); TOTAL PROTEIN, SERUM 7.9 g/dL (6.4-8.2)
[2024-06-05 14:49] LABS: DIFFERENTIAL COMMENT 1; HEMATOCRIT 18.5 % (31.2-41.9); RED BLOOD CELL COUNT(AUTO) 1.99 MIL/uL (3.63-4.92)
[2024-06-05 14:51] LABS: HEMOGLOBIN 6.3 g/dL (10.9-14.3); PLATELET COUNT (AUTO) 13 K/uL (179-408)
[2024-06-05] MEDS ORDERED: HYDR-4209 PO (15:17)
[2024-06-05] MEDS ORDERED: LACT1CAP26 PO (15:17)
[2024-06-05] MEDS ORDERED: ASCO500T85 PO (15:17)
[2024-06-05] MEDS ORDERED: ZINC50TA69 PO (15:17)
[2024-06-05] MEDS ORDERED: AMIN30LI2 PO (15:17)
[2024-06-05] MEDS ORDERED: ARGI1POW13 PO (15:17)
[2024-06-05] MEDS ORDERED: GABA400C PO (17:38)
[2024-06-05 17:47] LABS: LYMPHOCYTES % (MANUAL) 30 % (20-40); NEUTROPHILS % (MANUAL) 60 % (42-75)
[2024-06-05 17:48] LABS: BASOPHILS % (MANUAL) 0 % (0-2); EOSINOPHILS % (MANUAL) 1 % (0-8); MONOCYTES % (MANUAL) 9 % (2-10)
[2024-06-05] MEDS ORDERED: ACETAMINOPHEN 325 MG TABLET-SA PATIENTS-PAIN ONLY PO PRN (18:00)
[2024-06-05] MEDS ORDERED: HYDROCODONE/APAP 5-325MG TABLET PO PRN (18:00)
[2024-06-05] MEDS ORDERED: BISACODYL 10 MG SUPP.RECT RC PRN (18:00)
[2024-06-05 19:10] VITALS: BP 121/44; TEMP 99.8; O2SAT 99
[2024-06-05 20:09] LABS: IRON, SERUM 29 ug/dL (50-175)
[2024-06-05] MEDS: GABAPENTIN 400 MG CAPSULE PO SCH (20:31)
[2024-06-06 00:27] VITALS: BP 123/62; TEMP 102.1; O2SAT 96
[2024-06-06] MEDS: ACETAMINOPHEN 325 MG TABLET PO PRN (00:29)
[2024-06-06 04:47] VITALS: BP 110/69; TEMP 98.7; O2SAT 96
[2024-06-06] MEDS: PANTOPRAZOLE SODIUM 40 MG TABLET.DR PO SCH (06:17)
[2024-06-06 07:20] VITALS: BP 136/64; TEMP 98.1; O2SAT 96
[2024-06-06] MEDS ORDERED: Medication Not On Formulary EA (Zinc 50 MG) PO SCH (09:00)
[2024-06-06] MEDS ORDERED: Medication Not On Formulary EA (Arginine/Ascorbate Sod/Vite AC (Arginaid Powder) 1 EACH) PO SCH (09:00)
[2024-06-06] MEDS ORDERED: Medication Not On Formulary EA (Amino Acids/Protein Hydrolys (Pro-Stat Liquid) 30 ML) PO SCH (09:00)
[2024-06-06] MEDS: ARGININE/GLUTAMINE/CALCIUM BMB 1 EACH POWD.PACK PO SCH ×2 (09:03→17:16)
[2024-06-06] MEDS: PROTEIN SUPPLEMENT (PROSTAT) 30 ML LIQUID PO SCH (09:03)
[2024-06-06] MEDS: ASCORBIC ACID 500 MG TABLET PO SCH (09:03)
[2024-06-06] MEDS: ZINC SULFATE 220 MG CAPSULE PO SCH (09:10)
[2024-06-06 11:29] VITALS: BP 125/63; TEMP 98.5; O2SAT 94
[2024-06-06 12:31] LABS: *SODIUM RNDM,URINE 23 mmol/L (40-220)
[2024-06-06] MEDS ORDERED: REMEDY ESSENTIAL ZINC PASTE 113 GM TOP PRN (12:45)
[2024-06-06 13:47] LABS: *BILIRUBIN,URIN NEGATIVE (NEGATIVE); *BLOOD, URINE 2+ (NEGATIVE); *CLARITY,URINE CLEAR (CLEAR); *COLOR,URINE Other (YELLOW); *KETONES,URINE NEGATIVE (NEGATIVE); *PROTEIN,URINE 2+ (NEGATIVE); *UROBILINOGEN,URINE 0.2 E.U./dl (NORMAL); LEUKOCYTE ESTERASE ,URINE 3+ (NEGATIVE); NITRITE, URINE NEGATIVE (NEGATIVE); PH,URINE 8.5 (5.0-8.0); UGLUCOSE NEGATIVE (NEGATIVE)
[2024-06-06 13:52] LABS: BACTERIA,URINE MODERATE /HPF (NONE SEEN); RBC,URINE 20-50 /HPF (0-3); SQUAMOUS EPITHELIAL CELL,UR FEW /HPF (NONE SEEN); WBC,URINE 50-80 /HPF (0-3)
[2024-06-06 13:53] LABS: URINE AMORPHOUS PHOSPHATES FEW /HPF
[2024-06-06] MEDS ORDERED: CEFEPIME HCL 1 G in IV DEXTROSE 5% 50 ML IV SCH (14:00)
[2024-06-06] MEDS: MEDIHONEY= THERAHONEY 1.5 OZ TUBE TOP SCH (14:11)
[2024-06-06] MEDS: NEOMY/BACITRAC/POLYMI OINT 28.35 GM TUBE TOP SCH (14:11)
[2024-06-06] MEDS: TRIAMCINOLONE ACET 0.1% CREAM 15 GM TUBE TOP SCH (14:11)
[2024-06-06] MEDS: CEFEPIME HCL 1 G in IV DEXTROSE 5% 50 ML IV SCH (14:35)
[2024-06-06 15:46] VITALS: BP 130/60; TEMP 98; O2SAT 96
[2024-06-06] MEDS: VANCOMYCIN IV 1,000 MG in IV DEXTROSE 5% 250 ML IV SCH (16:00)
[2024-06-06 19:10] VITALS: BP 126/62; TEMP 100; O2SAT 99
[2024-06-06] MEDS: REMEDY ESSENTIAL ZINC PASTE 113 GM TOP SCH (21:00)
[2024-06-06] MEDS: levoFLOXacin 500 MG TABLET PO SCH (21:58)
[2024-06-07] VITALS (10 sets, daily range): BP systolic 100–133; BP diastolic 53–85; TEMP 97.6–98.8; O2SAT 90–100
[2024-06-07 06:58] LABS: BASOPHILS % (AUTO) 0.4 % (0.0-2.0); DIFFERENTIAL COMMENT 0; EOSINOPHILS % (AUTO) 1.1 % (0.0-7.0); HEMATOCRIT 21.1 % (31.2-41.9); LYMPHOCYTES # (AUTO) 0.6 K/uL (0.8-4.8); LYMPHOCYTES % (AUTO) 25.4 % (20.5-51.5); MEAN CORPUSCULAR HEMOGLOBIN 31.8 uug (24.7-32.8); MEAN CORPUSCULAR HGB CONC 35 g/dL (32.3-35.6); MEAN CORPUSCULAR VOLUME 91.4 fL (75.5-95.3); MONOCYTES # (AUTO) 0.3 K/uL (0.1-1.30); MONOCYTES % (AUTO) 11.4 % (0.0-11.0); NEUTROPHILS # (AUTO) 1.5 K/uL (1.8-8.9); NEUTROPHILS % (AUTO) 61.7 % (38.5-71.5); RED CELL DISTRIBUTION WIDTH 18.5 % (12.3-17.7); WHITE BLOOD COUNT (AUTO) 2.4 K/uL (3.8-11.8)
[2024-06-07 07:10] LABS: ALANINE AMINOTRANSFERASE 16 U/L (14-59); ALKALINE PHOSPHATASE 79 U/L (50-136); ASPARTATE AMINOTRANSFERASE 20 U/L (15-37); BILIRUBIN,TOTAL 1.4 mg/dL (0.2-1.0); CALCIUM 8.7 mg/dL (8.5-10.1); CARBON DIOXIDE 28 mmol/L (21-32); CHLORIDE 95 mmol/L (98-107); CHOLESTEROL 91 mg/dL (<200); CREATININE 0.8 mg/dL (0.6-1.3); GLUCOSE 105 mg/dL (74-106); HDL CHOLESTEROL 30 mg/dL (40-60); PHOSPHOROUS 3.3 mg/dL (2.5-4.9); POTASSIUM 3.7 mmol/L (3.5-5.1); SODIUM SERUM 129 mmol/L (136-145); TOTAL PROTEIN, SERUM 7.3 g/dL (6.4-8.2); TRIGLYCERIDES 94 MG/DL (30-150); UREA NITROGEN, BLOOD 29 mg/dL (7-18); URIC ACID 3.5 mg/dL (2.6-6.0)
[2024-06-07 07:13] LABS: RED BLOOD CELL COUNT(AUTO) 2.31 MIL/uL (3.63-4.92); THYROID STIMULATING HORMONE 2.505 mIU/mL (0.358-3.740)
[2024-06-07 07:22] LABS: HEMOGLOBIN 7.3 g/dL (10.9-14.3); PLATELET COUNT (AUTO) 13 K/uL (179-408)
[2024-06-07 15:29] LABS: BAND % (MANUAL) 5 % (0-10); LYMPHOCYTES % (MANUAL) 24 % (20-40); MONOCYTES % (MANUAL) 13 % (2-10); NEUTROPHILS % (MANUAL) 58 % (42-75)
[2024-06-07 15:30] LABS: ANISOCYTOSIS 2+; PLATELET ESTIMATE MARKED DECREASED
[2024-06-07] MEDS ORDERED: MUPIROCIN 2% OINT 22 GM TUBE ONE (21:18)
[2024-06-07] MEDS: MUPIROCIN 2% OINT 22 GM TUBE NS SCH (21:47)
[2024-06-08] VITALS (7 sets, daily range): BP systolic 104–134; BP diastolic 55–70; TEMP 97.5–99; O2SAT 96–99
[2024-06-08 06:55] LABS: BASOPHILS % (AUTO) 0.5 % (0.0-2.0); EOSINOPHILS % (AUTO) 1.3 % (0.0-7.0); HEMATOCRIT 27.6 % (31.2-41.9); HEMOGLOBIN 9.5 g/dL (10.9-14.3); LYMPHOCYTES # (AUTO) 0.7 K/uL (0.8-4.8); LYMPHOCYTES % (AUTO) 28.9 % (20.5-51.5); MEAN CORPUSCULAR HEMOGLOBIN 31.5 uug (24.7-32.8); MEAN CORPUSCULAR HGB CONC 35 g/dL (32.3-35.6); MEAN CORPUSCULAR VOLUME 90.9 fL (75.5-95.3); MONOCYTES # (AUTO) 0.2 K/uL (0.1-1.30); MONOCYTES % (AUTO) 9.3 % (0.0-11.0); NEUTROPHILS # (AUTO) 1.3 K/uL (1.8-8.9); RED BLOOD CELL COUNT(AUTO) 3.03 MIL/uL (3.63-4.92); RED CELL DISTRIBUTION WIDTH 18.5 % (12.3-17.7); WHITE BLOOD COUNT (AUTO) 2.2 K/uL (3.8-11.8)
[2024-06-08 07:12] LABS: DIFFERENTIAL COMMENT 1; PLATELET COUNT (AUTO) 12 K/uL (179-408)
[2024-06-08 07:16] LABS: CALCIUM 9.2 mg/dL (8.5-10.1); CARBON DIOXIDE 28 mmol/L (21-32); CHLORIDE 95 mmol/L (98-107); CREATININE 0.7 mg/dL (0.6-1.3); GLUCOSE 90 mg/dL (74-106); PHOSPHOROUS 2.8 mg/dL (2.5-4.9); POTASSIUM 3.6 mmol/L (3.5-5.1); SODIUM SERUM 128 mmol/L (136-145); UREA NITROGEN, BLOOD 23 mg/dL (7-18)
[2024-06-08] MEDS: PROTEIN SUPPLEMENT (PROSTAT) 30 ML LIQUID PO SCH (09:04)
[2024-06-08] MEDS ORDERED: MENT113O TOP (11:11)
[2024-06-08] MEDS ORDERED: PROT30LI PO (11:11)
[2024-06-08] MEDS ORDERED: MUPI22OI2 NS (11:11)
[2024-06-08] MEDS ORDERED: LEVO500T90 PO (11:11)
[2024-06-08] MEDS ORDERED: NUTR1PAC14 PO (11:11)
[2024-06-08 14:26] LABS: BAND % (MANUAL) 5 % (0-10); EOSINOPHILS % (MANUAL) 1 % (0-8); LYMPHOCYTES % (MANUAL) 31 % (20-40); MONOCYTES % (MANUAL) 9 % (2-10); NEUTROPHILS % (MANUAL) 54 % (42-75)
[2024-06-08 14:27] LABS: ANISOCYTOSIS 2+; PLATELET ESTIMATE MARKED DECREASED
== END 2024-06-08 17:00 | DRG 808 ==
LOC: ER 14:14 → TELE3 16:55 → MEDSURG3 06-08 10:43
PROVIDERS: ADMIT Internal Medicine; ATTEND Internal Medicine
PROC: 30233N1 Transfusion of Nonautologous Red Blood Cells into Peripheral Vein, Percutaneous Approach (ICD-10-PCS; principal; 2024-06-07)
DX: D61.818 Other pancytopenia (principal); A41.9 Sepsis, unspecified organism; G92.8 Other toxic encephalopathy; E87.1 Hypo-osmolality and hyponatremia; L97.812 Non-pressure chronic ulcer of other part of right lower leg with fat layer exposed; L97.822 Non-pressure chronic ulcer of other part of left lower leg with fat layer exposed; N39.0 Urinary tract infection, site not specified; K92.2 Gastrointestinal hemorrhage, unspecified; F11.20 Opioid dependence, uncomplicated; I50.32 Chronic diastolic (congestive) heart failure; D68.59 Other primary thrombophilia; E88.09 Other disorders of plasma-protein metabolism, not elsewhere classified; I25.2 Old myocardial infarction; I87.2 Venous insufficiency (chronic) (peripheral); E03.9 Hypothyroidism, unspecified; S31.104A Unspecified open wound of abdominal wall, left lower quadrant without penetration into peritoneal cavity, initial encounter; G90.9 Disorder of the autonomic nervous system, unspecified; X58.XXXA Exposure to other specified factors, initial encounter; Y92.129 Unspecified place in nursing home as the place of occurrence of the external cause; L89.156 Pressure-induced deep tissue damage of sacral region; C44.40 Unspecified malignant neoplasm of skin of scalp and neck; E61.1 Iron deficiency; I08.1 Rheumatic disorders of both mitral and tricuspid valves; G89.29 Other chronic pain; I11.0 Hypertensive heart disease with heart failure; Z74.09 Other reduced mobility; K21.9 Gastro-esophageal reflux disease without esophagitis; L08.9 Local infection of the skin and subcutaneous tissue, unspecified; I73.9 Peripheral vascular disease, unspecified; M20.12 Hallux valgus (acquired), left foot; M20.11 Hallux valgus (acquired), right foot; K76.9 Liver disease, unspecified; Z79.899 Other long term (current) drug therapy
CPT/HCPCS: 36415; 71045; 83550; 83735; 84100; 84300; 84443; 84550; 85025; 85730; 86850; 86870; 86900; 86901; 86920; 87077; 87086; A4606; A4663; A6213; G0378; J0692; J3370; J7050; P9016